=== PATIENT | female | born 1960 | race Caucasian/White ===

== ENCOUNTER 2017-02-02 02:35 | Inpatient (IN) | payer MEDICAID, OTHER ==
[2017-02-02] MEDS ORDERED: Sodium Chloride 0.9% 1,000 ML IV STA (02:59)
--- NOTE | 2017-02-02 03:02 | ED PDOC ---
Arrival/HPI - General Chief Complaint: Medical Clearance Time Seen by Provider: 02/02/17 02:38 Historian: Patient - History of Present Illness Narrative History of Present Illness (Text): 02/02/17 02:55 Latoya Cali is a 56 year old female who presents to the emergency department complaining of 2 days of shortness of breath, severe anxiety feeling , generalized weakness, chills, dizziness with polyuria and polydipsia. Patient states that she experiences associated dry mouth. She vomited once earlier. Patient denies any chest pain, abdominal pain, or any other complaints at this time. Time/Duration: 1-3 hours Symptom Onset: Gradual Symptom Course: Unchanged Severity Level: Moderate Context: Home Past Medical History - Provider Review Nursing Documentation Reviewed: Yes - Reproductive Menopause: Yes - Cardiac Hx Hypertension: Yes - Endocrine/Metabolic Hx Diabetes Mellitus Type 2: Yes - Psychiatric Hx Substance Use: No Family/Social History - Physician Review Nursing Documentation Reviewed: Yes Family/Social History: No Known Family HX Smoking Status: Never Smoked Hx Alcohol Use: No Hx Substance Use: No Allergies/Home Meds Allergies/Adverse Reactions: Allergies No Known Allergies Allergy (Verified 02/02/17 02:52) Home Medications: Home Meds Medication Instructions Recorded Confirmed Metoprolol Tartrate [Lopressor] 20 mg PO DAILY 02/02/17 02/02/17 metFORMIN [glucOPHAGE] 500 mg PO BID 02/02/17 02/02/17 Review of Systems - Physician Review All systems were reviewed & negative as marked: Yes - Review of Systems Constitutional: Fatigue, Other (Weakness, hypertensionm chills) Respiratory: SOB Cardiovascular: absent: Chest Pain Gastrointestinal: Vomiting (once). absent: Abdominal Pain Genitourinary Female: Frequency. absent: Dysuria, Vaginal Discharge Musculoskeletal: absent: Arthralgias Skin: absent: Rash, Pruritis Neurological: Dizziness. absent: Headache Endocrine: Polyuria, Polydipsia. absent: Diaphoresis Hemo/Lymphatic: absent: Adenopathy Psychiatric: Other (feeling of anxiety) Physical Exam Vital Signs Reviewed: Yes Vital Signs Temp Pulse Resp BP Pulse Ox 02/02/17 03:46 94 H 16 132/82 99 02/02/17 03:32 72 16 112/91 H 99 02/02/17 03:06 96.8 F L 02/02/17 02:53 98.4 F 113 H 30 H 86/40 L 100 Temperature: Afebrile Blood Pressure: Hypotensive Pulse: Tachycardic Respiratory Rate: Tachypneic Appearance: Positive for: Ill-Appearing, Other (Anxious appearing and jittery) Pain Distress: None Mental Status: Positive for: Alert and Oriented X 3 Finger Stick Blood Glucose: 284 - Systems Exam Head: Present: Atraumatic, Normocephalic Pupils: Present: PERRL Conjunctiva: Present: Normal Mouth: Present: Dry Pharnyx: Present: Normal. No: ERYTHEMA, EXUDATE, TONSILS ENLARGED Neck: Present: Normal Range of Motion Respiratory/Chest: Present: Clear to Auscultation, Good Air Exchange. No: Respiratory Distress, Accessory Muscle Use Cardiovascular: Present: Normal S1, S2, Tachycardic. No: Murmurs Abdomen: Present: Normal Bowel Sounds. No: Tenderness, Distention, Peritoneal Signs Back: Present: Normal Inspection Upper Extremity: Present: Normal Inspection. No: Cyanosis, Edema Lower Extremity: Present: Normal Inspection. No: Edema Neurological: Present: GCS=15, CN II-XII Intact, Speech Normal Skin: Present: Warm, Dry, Normal Color. No: Rashes Psychiatric: Present: Alert, Oriented x 3 Medical Decision Making ED Course and Treatment: 02/02/17 02:55 Impression: 56 year old female complaining of shortness of breath, generalized weakness, chills, and hypertension tonight. Differential Diagnosis included but are not limited to: Sepsis vs. DKA vs electrolyte abnormality vs PE Plan: -- Xanax and IV fluids -- Reassess and disposition Progress Notes: 02/02/17 05:03 EKG: sinus tachycardia @ [address]/T changes; QTc is wide at 521; no old for comparison. Normal axis. Patient with noted history - presented with hypotension and tachycardia and feeling of anxiety. Given IVF with good BP response. Labs are showing profound electrolyte abnormalities, including hyponatremia, hypomagnesemia, and hypokalemia. Patient will need intensive care - discussed with Dr. Mari Posada, grape picker for ICU admission. 02/02/17 05:13 Urine is still pending. - Lab Interpretations Lab Results: 02/02/17 03:05 02/02/17 03:05 Lab Results 02/02/17 04:00: pCO2 35, pO2 73.0 L, HCO3 28.6 H, ABG pH 7.52 H, ABG Total CO2 29.7 H, ABG O2 Saturation 96.4, ABG Base Excess 5.7 H, ABG Potassium 2.1 L*, Sodium 117.0 L*, Chloride 79.0 L, Glucose 265 H, Lactate 2.4 H, FiO2 21.0, Arterial Blood Potassium 2.1 L* 02/02/17 03:05: Sodium 113 L*, Chloride 70 L, Potassium 2.4 L*, Carbon Dioxide 24, Anion Gap 21 H, BUN 13, Creatinine 0.8, Est GFR ( Amer) > 60, Est GFR (Non-Af Amer) > 60, Random Glucose 267 H, Calcium 8.0 L, Magnesium 0.8 L*, Total Bilirubin 2.1 H, AST 264 H, ALT 260 H, Alkaline Phosphatase 166 H, Lactate Dehydrogenase 714 H, Total Creatine Kinase 238 H, CK-MB (CK-2) 3.2, CK- MB (CK-2) % Cancelled, Troponin I < 0.01, NT-Pro-B Natriuret Pep 120, Total Protein 6.3, Albumin 3.7, Globulin 2.6, Albumin/Globulin Ratio 1.4, Lipase 20 L 02/02/17 03:05: pO2 120 H, VBG pH 7.61 H, VBG pCO2 26.0 L, VBG HCO3 26.1, VBG Total CO2 26.9, VBG O2 Sat (Calc) 97.9 H, VBG Base Excess 5.7 H, VBG Potassium 2.4 L*, Sodium 115.0 L*, Chloride 73.0 L, Glucose 296 H, Lactate 5.1 H*, FiO2 21.0, Venous Blood Potassium 2.4 L* 02/02/17 03:05: PT 11.9 H, INR 1.10 H, APTT 24.3, D-Dimer, Quantitative 0.26 02/02/17 03:05: WBC 4.0 L, RBC 4.47, Hgb 13.2, Hct 38.2, MCV 85.5, MCH 29.5, MCHC 34.6, RDW 14.0, Plt Count 96 L, MPV 10.8, Gran % 69.3 H, Lymph % (Auto) 21.1 L, Mchenry % (Auto) 8.8 H, Eos % (Auto) 0.5 L, Baso % (Auto) 0.3, Gran # 2.76 , Lymph # 0.8 L, Mchenry # 0.4, Eos # 0.0, Baso # 0.01 02/02/17 02:51: POC Glucose (mg/dL) 284 H I have reviewed the lab results: Yes - RAD Interpretation Radiology Orders: 02/02/17 03:05 CHEST PORTABLE [RAD] Stat - Medication Orders Current Medication Orders: Magnesium Sulfate 2 gm/ Sodium (Chloride) 104 mls @ 102 mls/hr IV ONCE ONE Stop: 02/02/17 05:15 Potassium Chloride (Potassium Chloride 10 Meq/100 Ml) 10 meq in 100 mls @ 100 mls/hr IVPB Q2H ARINA Stop: 02/02/17 07:14 Vancomycin HCl (Vancomycin 1gm) 1 gm in 250 mls @ 167 mls/hr IVPB STAT STA PRN Reason: Protocol Stop: 02/02/17 05:52 Last Admin: 02/02/17 04:30 Dose: 167 mls/hr eMAR Start Stop Document 02/02/17 04:30 SC (Rec: 02/02/17 04:31 [facility] [id number] Intravenous Solution Start Date 02/02/17 Start Time 04:31 End Date 02/02/17 End time 06:01 Total Infusion Time 90 Discontinued Medications Alprazolam (Xanax) 0.25 mg PO STAT STA PRN Reason: Protocol Stop: 02/02/17 03:05 Last Admin: 02/02/17 03:30 Dose: 0.25 mg Famotidine (Pepcid) 20 mg IVP STAT STA Stop: 02/02/17 03:06 Last Admin: 02/02/17 03:30 Dose: 20 mg IVP Administration Document 02/02/17 03:30 SC (Rec: 02/02/17 03:44 [facility] [id number] Charges for Administration # of IVP Administrations 1 Sodium Chloride (Sodium Chloride 0.9%) 1,000 mls @ 999 mls/hr IV .Q1H1M STA Stop: 02/02/17 03:59 Last Admin: 02/02/17 03:43 Dose: 999 mls/hr eMAR Start Stop Document 02/02/17 03:43 SC (Rec: 02/02/17 03:44 [place] [facility] [id number] Intravenous Solution Start Date 02/02/17 Start Time 03:30 End Date 02/02/17 End time 04:30 Total Infusion Time 60 Sodium Chloride (Sodium Chloride 0.9%) 1,500 mls @ 1,500 mls/hr IV .Q1H STA Stop: 02/02/17 04:49 Last Admin: 02/02/17 04:02 Dose: 1,500 mls/hr eMAR Start Stop Document 02/02/17 04:02 SC (Rec: 02/02/17 04:02 SC [facility] [id number]) Intravenous Solution Start Date 02/02/17 Start Time 04:02 End Date 02/02/17 End time 05:00 Total Infusion Time 58 Piperacillin Sod/Tazobactam Sod (Zosyn 3.375 In Ns 100ml) 100 mls @ 200 mls/hr IVPB STAT STA PRN Reason: Protocol Stop: 02/02/17 04:48 - Scribe Statement Jenn Rolon Provider Scribe Attestation: All medical record entries made by the Scribe were at my direction and personally dictated by me. I have reviewed the chart and agree that the record accurately reflects my personal performance of the history, physical exam, medical decision making, and the department course for this patient. I have also personally directed, reviewed, and agree with the discharge instructions and disposition. Disposition/Present on Arrival - Present on Arrival Any Indicators Present on Arrival: No History of DVT/PE: No History of Uncontrolled Diabetes: No Urinary Catheter: No History of Decub. Ulcer: No History Surgical Site Infection Following: None - Disposition Have Diagnosis and Disposition been Completed?: Yes Diagnosis: Hyponatremia, Hypokalemia, Hypomagnesemia Disposition: HOSPITALIZED Disposition Time: 04:20 Patient Plan: Admission, ICU Condition: CRITICAL
[2017-02-02 03:47] LABS: BASO # 0.01 K/mm3 (0.0-2.0); BASO % 0.3 % (0.0-3.0); EOS % 0.5 % (1.5-5.0); GRAN # 2.76 (1.4-6.5); GRAN % 69.3 % (50.0-68.0); HEMATOCRIT 38.2 % (36.0-48.0); LYMPH # 0.8 (1.2-3.4); LYMPH % 21.1 % (22.0-35.0); MEAN CELL VOLUME 85.5 fl (80.0-105.0); MEAN CORPUSCULAR HEMOGLOBIN 29.5 pg (25.0-35.0); MEAN CORPUSCULAR HGB CONC 34.6 g/dl (31.0-37.0); MEAN PLATELET VOLUME 10.8 fl (7.0-11.0); MONO # 0.4 (0.1-0.6); MONO % 8.8 % (1.0-6.0)
[2017-02-02 03:48] LABS: VENOUS BLOOD GAS BASE EXCESS 5.7 mmol/L (0.0-2.0); VENOUS BLOOD PH 7.61 (7.32-7.43)
[2017-02-02] MEDS ORDERED: Sodium Chloride 0.9% 1,500 ML IV STA (03:50)
[2017-02-02 04:02] LABS: ALB/GLOB RATIO 1.4 (1.1-1.8); ALKALINE PHOSPHATASE 166 U/L (38-126); ALT/SGPT 260 U/L (7-56); AST/SGOT 264 U/L (14-36); BILIRUBIN,TOTAL 2.1 mg/dL (0.2-1.3); BLOOD UREA NITROGEN 13 mg/dL (7-21); CARBON DIOXIDE 24 mmol/L (21-33); CHLORIDE 70 mmol/L (98-107); GFR AFRICAN-AMERICAN > 60; GLUCOSE,RANDOM 267 mg/dL (70-110); INR 1.1 (0.93-1.08); LIPASE 20 U/L (23-300); PARTIAL THROMBOPLASTIN TIME 24.3 Seconds (23.7-30.8); TOTAL PROTEIN 6.3 g/dL (5.8-8.3)
[2017-02-02 04:04] LABS: SODIUM 113 mmol/L (132-148)
[2017-02-02 04:06] LABS: D DIMER 0.26 mg/L FEU (0-0.50)
[2017-02-02 04:09] LABS: POTASSIUM 2.4 mmol/L (3.6-5.0)
[2017-02-02 04:12] LABS: MAGNESIUM 0.8 mg/dL (1.7-2.2)
[2017-02-02] MEDS ORDERED: Magnesium Sulfate 2 GM in Sodium Chloride 0.9% 100 ML IV ONE (04:14)
[2017-02-02 04:15] LABS: TROPONIN I < 0.01 ng/mL
[2017-02-02] MEDS ORDERED: Piperacillin/Tazobact 3.375 gm 100 ML IVPB STA (04:19)
[2017-02-02 04:20] LABS: ARTERIAL BLOOD GAS HCO3 28.6 mmol/L (21-28); ARTERIAL BLOOD GAS PH 7.52 (7.35-7.45)
[2017-02-02] MEDS ORDERED: Vancomycin 1gm in NS 250ml 1 GM/250 ML BAG IVPB STA (04:23)
[2017-02-02 05:37] LABS: PH,URINE 6.5 (4.7-8.0); URINE BILIRUBIN NEGATIVE (NEGATIVE); URINE BLOOD TRACE-INTACT (NEGATIVE); URINE GLUCOSE (UA) NEGATIVE (NEGATIVE); URINE KETONE TRACE mg/dL (NEGATIVE); URINE LEUKOCYTE ESTERASE SMALL Leu/uL (NEGATIVE); URINE PROTEIN NEGATIVE mg/dL (<30 mg/dL); URINE UROBILINOGEN 0.2 E.U./dL (<1 E.U./dL)
[2017-02-02 05:46] LABS: URINE APPEARANCE CLEAR (CLEAR); URINE COLOR YELLOW (YELLOW)
[2017-02-02 05:49] LABS: URINE BACTERIA OCC (NEG); URINE RBC 0 - 2 /hpf (0-2)
--- NOTE | 2017-02-02 06:09 | CP.PCM.HP ---
History of Present Illness - History of Present Illness History of Present Illness: Jose Ho PGY-1 Internal Medicine H+P and ICU Consult Note HPI: 56 yo female with PMH of HTN and DM2 presents with complaining of SOB and generalized weakness for past 2 days. Patient states she gets SOB when she walks some distance. She has never felt the weakness before, denies any change in appetite. She also complains of nausea and vomiting up food several times over the past two days. In addition, she feels that her face has been swollen a little for the past couple of days. She also complained of chills, dizziness, dry mouth, but denies any CP, abdominal pain, headaches, diarrhea or any other complaints. PMH: HTN, DM2 PSH: Lasik Medications: Metoprolol, Metformin Allergies: NKDA Social: denies tobacco use, occasional alcohol use socially, denies illicit drug use Family Hx: None Significant Present on Admission - Present on Admission Any Indicators Present on Admission: No Review of Systems - Constitutional Constitutional: Chills, Fatigue - EENT Eyes: absent: Change in Vision Nose/Mouth/Throat: absent: Nasal Congestion, Sore Throat - Cardiovascular Cardiovascular: Dyspnea. absent: Chest Pain - Respiratory Respiratory: Dyspnea - Gastrointestinal Gastrointestinal: Nausea, Vomiting. absent: Abdominal Pain - Musculoskeletal Musculoskeletal: absent: Arthralgias, Numbness, Tingling - Integumentary Integumentary: absent: Rash - Psychiatric Psychiatric: Anxiety Past Patient History - Past Social History Smoking Status: Never Smoked - CARDIAC Hx Hypertension: Yes - ENDOCRINE/METABOLIC Hx Diabetes Mellitus Type 2: Yes - PSYCHIATRIC Hx Substance Use: No Meds Allergies/Adverse Reactions: Allergies Allergy/AdvReac Type Severity Reaction Status Date / Time No Known Allergies Allergy Verified 02/02/17 02:52 Physical Exam - Constitutional Appears: Non-toxic, No Acute Distress - Head Exam Head Exam: ATRAUMATIC, NORMAL INSPECTION, NORMOCEPHALIC - Eye Exam Eye Exam: EOMI, PERRL - Neck Exam Neck exam: Negative for: Lymphadenopathy, Tenderness, Thyromegaly - Respiratory Exam Respiratory Exam: Clear to Auscultation Bilateral, NORMAL BREATHING PATTERN - Cardiovascular Exam Cardiovascular Exam: REGULAR RHYTHM, +S1, +S2. absent: Systolic Murmur - GI/Abdominal Exam GI & Abdominal Exam: Normal Bowel Sounds. absent: Tenderness - Extremities Exam Extremities exam: Positive for: normal inspection - Back Exam Back exam: absent: CVA tenderness (L), CVA tenderness (R) - Neurological Exam Neurological exam: Alert, CN II-XII Intact, Oriented x3 - Psychiatric Exam Psychiatric exam: Anxious - Skin Skin Exam: Normal Color Results - Vital Signs Recent Vital Signs: Last Vital Signs Temp 98.4 F 02/02/17 06:00 Pulse 96 H 02/02/17 06:00 Resp 16 02/02/17 06:00 BP 146/88 02/02/17 06:00 Pulse Ox 99 02/02/17 06:00 - Labs Result Diagrams: 02/02/17 03:05 02/02/17 21:20 Labs: Laboratory Results - last 24 hr 02/02/17 04:45 Urine Color Yellow Urine Appearance Clear Urine pH 6.5 Ur Specific [place] <= 1.005 Urine Protein Negative Urine Glucose (UA) Negative Urine Ketones Trace H Urine Blood Trace-intact H Urine Nitrate Negative Urine Bilirubin Negative Urine Urobilinogen 0.2 Ur Leukocyte Esterase Small H Urine RBC 0 - 2 Urine WBC 2 - 5 Ur Epithelial Cells 3 - 4 Urine Bacteria Occ Assessment & Plan - Assessment and Plan (Free Text) Assessment: 56 yo female with PMH of HTN and DM2 presents with complaining of SOB and generalized weakness for past 2 days. She is being admitted to the ICU due to electrolyte disturbances (hypokalemia, hyponatremia, hypomagnesia) and meeting SIRS criteria (HR>90, RR>30, and WBC=4) Plan: Neuro: -Patient is AAOx3, speaking coherently, able to answer questions and provide a history -patient slightly anxious -Xanax given in the ED -CN II-XII intact bilaterally - continue to monitor, maintain euthermia Cardiovascular -HR: 96 BP: 146/88, HR was 113 and BP was 86/40 on admission -EKG sinus tachycardia @ [address]/T changes; QTc is wide at 521; no old EKG for comparison, EKG pending official review -Trop 0.01 -Patient given IV fluids -Continue to monitor BP and vitals Pulmonary -Oxygen saturation is 99% on room air -patient breathing at a rate 16 and denies any discomfort -pH: 7.52 HC03:28.6 -Chest x-ray: no acute disease, no infiltrates, pending official read Renal -BUN: 13.0 Cr: 0.8 -Na: 113, K: 2.4 Cl: 70 Magnesium: 0.8 -NS given, K given, Magnesium given -urine electrolytes ordered -Considering possible RTA -Monitor and replete electrolytes as needed -maintain euvolemia -Nephro (Mughni) Consulted Infectious Disease -Max temp: 96.8 -WBC: 4, currently afebrile -Urine and blood cultures ordered, pending -Zosyn and Vancomycin given Hematology -Hb: 13.2 Hct: 38.2 Platelets: 96 PT: 11.9 INR: 1.10 D-Dimer: 0.26 -continue to monitor GI -AST: 264 ALT: 260 Alk Phos: 166 lipase: 20 -Follow Transaminitis -Lipid panel Order -CT abdomen and Pelvis ordered Endocrine: -Blood Sugar is 284 -Hold oral glycemics -HA1C ordered -Adrenal workup ordered -TSH ordered, Thyroid antibodies ordered -Considering possible Adrenal insufficiency -Will consult Endo GI/DVT Prophylaxis Patient seen and discussed with the attending Dr. Jordin Posada
[2017-02-02 06:43] LABS: PHOSPHOROUS 2.2 mg/dL (2.5-4.5)
[2017-02-02] MEDS ORDERED: Insulin Lispro (humaLOG) LOW Coverage SC SCH (06:45)
--- NOTE | 2017-02-02 07:35 | CT ---
EXAM: CT Abdomen and Pelvis Without Intravenous Contrast EXAM DATE/TIME: 02/02/2017 6:03 AM CLINICAL HISTORY: 56 years old, female; Abnormal findings; Abnormal lab test; Elevated liver enzymes; Additional info: Elevated lft TECHNIQUE: Axial computed tomography images of the abdomen and pelvis without intravenous contrast. All CT scans at this facility use one or more dose reduction techniques, viz.: automated exposure control; ma/kV adjustment per patient size (including targeted exams where dose is matched to indication; i.e. head); or iterative reconstruction technique. Coronal and sagittal reformatted images were created and reviewed. COMPARISON: No relevant prior studies available. FINDINGS: Cholecystectomy clips are present. The liver is decreased in attenuation consistent with fatty infiltration. Extensive pancreatic calcifications are present suggesting chronic pancreatitis. The spleen and adrenals appear grossly normal on this non-contrast study. No perinephric stranding. No hydronephrosis. No obstructing calculi. The bowel appears grossly normal. A normal appendix is identified coronal image 61 axial images 132 -151. There is a small umbilical fat hernia. No gross abnormalities of the uterus or ovaries on noncontrast study. Well-corticated lucency left acetabular roof. IMPRESSION: No acute findings.
--- NOTE | 2017-02-02 07:53 | PCM.SEPTIC ---
<Dennis Freireima - Last Filed: 02/02/17 13:37> Sepsis Progress Note - Reassessment Type Date of Evaluation: 02/02/17 Time of Evaluation: 10:00 Reassessment Type: Non-invasive reassessment - Non Invasive Reassessment Were the most recent vital sign reviewed: Yes Vital Sign (Latest): Temp Pulse Resp BP Pulse Ox 98.2 F 96 H 18 139/80 99 02/02/17 07:00 02/02/17 07:00 02/02/17 07:00 02/02/17 07:00 02/02/17 07:00 Cardiovascular: Yes: Regular Rate, Rhythm. No: Murmur, Bradycardia, Tachycardia Respiratory: Yes: Normal Breath Sounds. No: Accessory Muscle Use, Rales, Rhonchi, Wheezing Capillary Refill: Normal (Less than 2 sec) Skin: Normal Color, Warm, Dry - Invasive Reassessment (complete 2 of 4) Was a Central Venous Pressure Measurement obtained within 6 Hours after the presentation of septic shock: No Was a central venous oxygen measurement obtained within 6 hours after the presentation of septic shock: No Was a bedside cardiovascular ultrasound performed within 6 hours after the presentation of septic shock: No Was a passive leg raise performed or was a fluid challenge performed within 6 hrs of the initial fluid bolus: Yes Passive Leg Raise Result: Not Applicable Fluid Challenge performed: Yes <Perri Posada MD - Last Filed: 02/02/17 15:00> Sepsis Progress Note - Non Invasive Reassessment Vital Sign (Latest): Temp Pulse Resp BP Pulse Ox 98.1 F 87 20 139/80 99 02/02/17 13:13 02/02/17 13:13 02/02/17 13:13 02/02/17 13:13 02/02/17 07:00 Attending/Attestation - Attestation I have personally seen and examined this patient.: Yes I have fully participated in the care of the patient.: Yes I have reviewed all pertinent clinical information, including history, physical exam and plan: Yes Notes (Text): 02/02/17 14:58 56 y/o F admitted overnight for broad electrolyte abnormality All electrolytes replaced. Na trend and increased quickl on NS. Held and given D%w and desmopressin. Trend BMP q 4hrs. Na change 8-10meq in 24 hrs. Mental status intact. Symptoms resolved. Out of bed to chair dvt p cc time 55 min
[2017-02-02 07:54] LABS: VENOUS BLOOD GAS BASE EXCESS 7.6 mmol/L (0.0-2.0); VENOUS BLOOD PH 7.48 (7.32-7.43)
[2017-02-02 08:15] LABS: BLOOD UREA NITROGEN 10 mg/dL (7-21); CALCIUM 7.1 mg/dL (8.4-10.5); CARBON DIOXIDE 30 mmol/L (21-33); CHLORIDE 85 mmol/L (98-107); CHOLESTEROL 138 mg/dL (130-200); GFR AFRICAN-AMERICAN > 60; GLUCOSE,RANDOM 195 mg/dL (70-110); SODIUM 123 mmol/L (132-148)
[2017-02-02 08:24] LABS: POTASSIUM 2.9 mmol/L (3.6-5.0)
--- NOTE | 2017-02-02 08:31 | RAD ---
HISTORY: sob COMPARISON: No prior. FINDINGS: LUNGS: There is patient rotation to the right. Allowing for this, the lungs are clear. PLEURA: No significant pleural effusion identified, no pneumothorax apparent. CARDIOVASCULAR: Normal. OSSEOUS STRUCTURES: No significant abnormalities. VISUALIZED UPPER ABDOMEN: Normal. OTHER FINDINGS: None. IMPRESSION: Patient rotation to the right. No acute findings.
[2017-02-02 08:48] LABS: THYROID STIMULATING HORMONE 1.18 mIU/mL (0.46-4.68)
[2017-02-02 09:10] LABS: BLOOD UREA NITROGEN 10 mg/dL (7-21); CALCIUM 7.3 mg/dL (8.4-10.5); CARBON DIOXIDE 28 mmol/L (21-33); CHLORIDE 85 mmol/L (98-107); GFR AFRICAN-AMERICAN > 60; GLUCOSE,RANDOM 186 mg/dL (70-110); MAGNESIUM 1.6 mg/dL (1.7-2.2); PHOSPHOROUS 3.7 mg/dL (2.5-4.5); SODIUM 123 mmol/L (132-148)
[2017-02-02] MEDS ORDERED: Magnesium Sulfate 2 GM in Sodium Chloride 0.9% 100 ML IVPB ONE (09:22)
[2017-02-02] MEDS ORDERED: Potassium Chloride 40 mEq/30 ml LIQ UD PO ONE (09:27)
--- NOTE | 2017-02-02 10:13 | CP.PCM.CON ---
<Ela Potter - Last Filed: 02/02/17 10:38> History of Present Illness - History of Present Illness History of Present Illness: Gastroenterology Fellow/PGY5 Consult Note 56 year old female with past medical history of Hypertension and Diabetes presenting with weakness and shortness of breath. Patient describes onset of swollen face, chills, and three soft stools per day over the past two days. She felt her mouth was dry leading to drinking ten half- liter bottles of water from baseline 4-5 half-liter bottles of water daily. She then developed polyuria and shortness of breath. Denies fever, sweats, nausea, vomiting, hematemesis, abdominal pain, constipation, melena, hematochezia, or unintentional weight loss. Usual bowel habit of once daily without straining and hard stools. Prior EGD and colonoscopy three months ago endorsed to be normal with patient stating completed for routine evaluation. Family- denies stomach cancer, colon cancer Social- denies tobacco, alcohol, illicit drug use Surgery- cholecystectomy, [place] Review of Systems - Review of Systems Review of Systems: 12-point review of systems negative except for as above Past Patient History - Past Social History Smoking Status: Never Smoked - CARDIAC Hx Hypertension: Yes - ENDOCRINE/METABOLIC Hx Diabetes Mellitus Type 2: Yes - PSYCHIATRIC Hx Substance Use: No Meds Allergies/Adverse Reactions: Allergies Allergy/AdvReac Type Severity Reaction Status Date / Time No Known Allergies Allergy Verified 02/02/17 02:52 - Medications Medications: Current Medications Heparin Sodium (Porcine) (Heparin) 5,000 units SC Q12 ARINA PRN Reason: Protocol Last Admin: 02/02/17 09:25 Dose: 5,000 units Magnesium Sulfate 2 gm/ Sodium (Chloride) 104 mls @ 102 mls/hr IVPB ONCE ONE Stop: 02/02/17 10:23 Last Admin: 02/02/17 09:37 Dose: 102 mls/hr Dextrose (Dextrose 5% In Water 1000 Ml) 1,000 mls @ 100 mls/hr IV .Q10H ARINA Last Admin: 02/02/17 09:37 Dose: 100 mls/hr Insulin Human Lispro (Humalog Low) 0 units SC Q6H ARINA PRN Reason: Protocol Metoprolol Tartrate (Lopressor) 25 mg PO DAILY [facility] Last Admin: 02/02/17 09:35 Dose: 25 mg Pantoprazole Sodium (Protonix Ec Tab) 40 mg PO 0600 [facility] Physical Exam - Constitutional Appears: Non-toxic, No Acute Distress - Head Exam Head Exam: ATRAUMATIC, NORMOCEPHALIC - Eye Exam Eye Exam: EOMI, PERRL Pupil Exam: PERRL. absent: Miosis, Mydriatic - ENT Exam ENT Exam: Mucous Membranes Moist, Normal Oropharynx - Neck Exam Neck exam: Positive for: Full Rom, Normal Inspection - Respiratory Exam Respiratory Exam: Clear to Auscultation Bilateral. absent: Rales, Rhonchi, Wheezes - Cardiovascular Exam Cardiovascular Exam: RRR, +S1, +S2. absent: Gallop, Rubs - GI/Abdominal Exam GI & Abdominal Exam: Normal Bowel Sounds, Soft. absent: Distended, Firm, Guarding, Organomegaly, Rebound, Rigid, Tenderness - Extremities Exam Extremities exam: Positive for: normal inspection. Negative for: pedal edema - Neurological Exam Neurological exam: Alert, Oriented x3 - Psychiatric Exam Psychiatric exam: Normal Affect, Normal Mood - Skin Skin Exam: Dry, Intact, Normal Color, Warm Results - Vital Signs Recent Vital Signs: Last Vital Signs Temp 98.2 F 02/02/17 07:00 Pulse 85 02/02/17 09:35 Resp 18 02/02/17 07:00 BP 122/73 02/02/17 09:35 Pulse Ox 99 02/02/17 07:00 - Labs Result Diagrams: 02/02/17 03:05 02/02/17 08:30 Labs: Laboratory Results - last 24 hr 02/02/17 02/02/17 02/02/17 04:45 06:24 07:30 pO2 VBG pH VBG pCO2 VBG HCO3 VBG Total CO2 VBG O2 Sat (Calc) VBG Base Excess VBG Potassium Sodium Chloride Glucose Lactate FiO2 Potassium Carbon Dioxide Anion Gap BUN Creatinine Est GFR ( Amer) Est GFR (Non-Af Amer) Random Glucose Calcium Phosphorus Magnesium Triglycerides Cholesterol LDL Cholesterol Direct HDL Cholesterol TSH 3rd Generation 1.18 Venous Blood Potassium Urine Color Yellow Urine Appearance Clear Urine pH 6.5 Ur Specific [place] <= 1.005 Urine Protein Negative Urine Glucose (UA) Negative Urine Ketones Trace H Urine Blood Trace-intact H Urine Nitrate Negative Urine Bilirubin Negative Urine Urobilinogen 0.2 Ur Leukocyte Esterase Small H Urine RBC 0 - 2 Urine WBC 2 - 5 Ur Epithelial Cells 3 - 4 Urine Bacteria Occ Ur Random Sodium 61 Acetaminophen Alcohol, Quantitative 02/02/17 02/02/17 02/02/17 07:30 07:30 08:30 pO2 59 H VBG pH 7.48 H VBG pCO2 43.0 VBG HCO3 32.0 H VBG Total CO2 33.3 H VBG O2 Sat (Calc) 92.9 H VBG Base Excess 7.6 H VBG Potassium 2.8 L Sodium 123 L 122.0 L 123 L Chloride 85 L D 86.0 L 85 L Glucose 210 H Lactate 1.4 FiO2 21.0 Potassium 2.9 L* D 3.0 L Carbon Dioxide 30 28 Anion Gap 11 13 BUN 10 10 Creatinine 0.7 0.7 Est GFR ( Amer) > 60 > 60 Est GFR (Non-Af Amer) > 60 > 60 Random Glucose 195 H 186 H Calcium 7.1 L 7.3 L Phosphorus 3.7 Magnesium 1.6 L Triglycerides 159 Cholesterol 138 LDL Cholesterol Direct 58 HDL Cholesterol 36 TSH 3rd Generation Venous Blood Potassium 2.8 L Urine Color Urine Appearance Urine pH Ur Specific [place] Urine Protein Urine Glucose (UA) Urine Ketones Urine Blood Urine Nitrate Urine Bilirubin Urine Urobilinogen Ur Leukocyte Esterase Urine RBC Urine WBC Ur Epithelial Cells Urine Bacteria Ur Random Sodium Acetaminophen Alcohol, Quantitative 02/02/17 02/02/17 08:30 08:30 pO2 VBG pH VBG pCO2 VBG HCO3 VBG Total CO2 VBG O2 Sat (Calc) VBG Base Excess VBG Potassium Sodium Chloride Glucose Lactate FiO2 Potassium Carbon Dioxide Anion Gap BUN Creatinine Est GFR ( Amer) Est GFR (Non-Af Amer) Random Glucose Calcium Phosphorus Magnesium Triglycerides Cholesterol LDL Cholesterol Direct HDL Cholesterol TSH 3rd Generation Venous Blood Potassium Urine Color Urine Appearance Urine pH Ur Specific [place] Urine Protein Urine Glucose (UA) Urine Ketones Urine Blood Urine Nitrate Urine Bilirubin Urine Urobilinogen Ur Leukocyte Esterase Urine RBC Urine WBC Ur Epithelial Cells Urine Bacteria Ur Random Sodium Acetaminophen < 10.0 L Alcohol, Quantitative < 10 Assessment & Plan - Assessment and Plan (Free Text) Assessment: 56 year old female with past medical history of Hypertension and Diabetes presenting with weakness, shortness of breath, diarrhea, polydipsia, and polyuria. 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 Prior EGD and colonoscopy three months ago endorsed to be normal with patient stating completed for routine evaluation. Plan: >likely ischemic hepatopathy 2/2 transient ischemia with SIRs criteria on presentation >polydipsia and polyuria in setting of HAGMA, trace ketones, hyperglycemia >medicine team pending work up for RTA and adrenal insufficiency >ordered direct bilirubin >ordered autoimmune workup >pending Hepatitis panel >ordered Abdominal U/S >daily LFTs >pending stool work up >signs of chronic pancreatitis on CT A/P- denies history of acute pancreatitis- will require further workup >will follow clinical course <Ramses Tilley - Last Filed: 02/02/17 12:38> Meds - Medications Medications: Current Medications Heparin Sodium (Porcine) (Heparin) 5,000 units SC Q12 ARINA PRN Reason: Protocol Last Admin: 02/02/17 09:25 Dose: 5,000 units Dextrose (Dextrose 5% In Water 1000 Ml) 1,000 mls @ 500 mls/hr IV .Q2H [facility]INA Stop: 02/02/17 13:31 Last Admin: 02/02/17 11:19 Dose: 500 mls/hr Vancomycin HCl (Vancomycin 1gm) 1 gm in 250 mls @ 167 mls/hr IVPB Q12H [facility]INA PRN Reason: Protocol Last Admin: 02/02/17 11:21 Dose: 167 mls/hr Piperacillin Sod/Tazobactam Sod (Zosyn 3.375 In Ns 100ml) 100 mls @ 200 mls/hr IVPB Q6 ARINA PRN Reason: Protocol Stop: 02/02/17 18:29 Last Admin: 02/02/17 11:28 Dose: 200 mls/hr Insulin Human Lispro (Humalog Low) 0 units SC Q6H ARINA PRN Reason: Protocol Last Admin: 02/02/17 11:54 Dose: 3 units Metoprolol Tartrate (Lopressor) 25 mg PO DAILY [facility] Last Admin: 02/02/17 09:35 Dose: 25 mg Pantoprazole Sodium (Protonix Ec Tab) 40 mg PO 0600 [facility] Results - Vital Signs Recent Vital Signs: Last Vital Signs Temp 98.2 F 02/02/17 07:00 Pulse 85 02/02/17 09:35 Resp 18 02/02/17 07:00 BP 122/73 02/02/17 09:35 Pulse Ox 99 02/02/17 07:00 - Labs Result Diagrams: 02/02/17 03:05 02/02/17 11:30 Labs: Laboratory Results - last 24 hr 02/02/17 02/02/17 02/02/17 04:45 06:24 07:30 pO2 VBG pH VBG pCO2 VBG HCO3 VBG Total CO2 VBG O2 Sat (Calc) VBG Base Excess VBG Potassium Sodium Chloride Glucose Lactate FiO2 Potassium Carbon Dioxide Anion Gap BUN Creatinine Est GFR ( Amer) Est GFR (Non-Af Amer) POC Glucose (mg/dL) Random Glucose Serum Osmolality 260 L Calcium Phosphorus Magnesium Iron TIBC % Saturation Direct Bilirubin Triglycerides Cholesterol LDL Cholesterol Direct HDL Cholesterol TSH 3rd Generation 1.18 Prolactin Venous Blood Potassium Urine Color Yellow Urine Appearance Clear Urine pH 6.5 Ur Specific [place] <= 1.005 Urine Protein Negative Urine Glucose (UA) Negative Urine Ketones Trace H Urine Blood Trace-intact H Urine Nitrate Negative Urine Bilirubin Negative Urine Urobilinogen 0.2 Ur Leukocyte Esterase Small H Urine RBC 0 - 2 Urine WBC 2 - 5 Ur Epithelial Cells 3 - 4 Urine Bacteria Occ Urine Osmolality 186 Ur Random Sodium 61 Salicylates Acetaminophen Alcohol, Quantitative 02/02/17 02/02/17 02/02/17 07:30 07:30 08:30 pO2 59 H VBG pH 7.48 H VBG pCO2 43.0 VBG HCO3 32.0 H VBG Total CO2 33.3 H VBG O2 Sat (Calc) 92.9 H VBG Base Excess 7.6 H VBG Potassium 2.8 L Sodium 123 L 122.0 L 123 L Chloride 85 L D 86.0 L 85 L Glucose 210 H Lactate 1.4 FiO2 21.0 Potassium 2.9 L* D 3.0 L Carbon Dioxide 30 28 Anion Gap 11 13 BUN 10 10 Creatinine 0.7 0.7 Est GFR ( Amer) > 60 > 60 Est GFR (Non-Af Amer) > 60 > 60 POC Glucose (mg/dL) Random Glucose 195 H 186 H Serum Osmolality Calcium 7.1 L 7.3 L Phosphorus 3.7 Magnesium 1.6 L Iron TIBC % Saturation Direct Bilirubin Triglycerides 159 Cholesterol 138 LDL Cholesterol Direct 58 HDL Cholesterol 36 TSH 3rd Generation Prolactin 4.8 Venous Blood Potassium 2.8 L Urine Color Urine Appearance Urine pH Ur Specific [place] Urine Protein Urine Glucose (UA) Urine Ketones Urine Blood Urine Nitrate Urine Bilirubin Urine Urobilinogen Ur Leukocyte Esterase Urine RBC Urine WBC Ur Epithelial Cells Urine Bacteria Urine Osmolality Ur Random Sodium Salicylates Acetaminophen Alcohol, Quantitative 02/02/17 02/02/17 02/02/17 08:30 08:30 11:30 pO2 VBG pH VBG pCO2 VBG HCO3 VBG Total CO2 VBG O2 Sat (Calc) VBG Base Excess VBG Potassium Sodium 120 L Chloride 84 L Glucose Lactate FiO2 Potassium 3.8 Carbon Dioxide 28 Anion Gap 12 BUN 9 Creatinine 0.7 Est GFR ( Amer) > 60 Est GFR (Non-Af Amer) > 60 POC Glucose (mg/dL) Random Glucose 258 H Serum Osmolality Calcium 7.5 L Phosphorus Magnesium Iron TIBC % Saturation Direct Bilirubin 0.7 H Triglycerides Cholesterol LDL Cholesterol Direct HDL Cholesterol TSH 3rd Generation Prolactin Venous Blood Potassium Urine Color Urine Appearance Urine pH Ur Specific [place] Urine Protein Urine Glucose (UA) Urine Ketones Urine Blood Urine Nitrate Urine Bilirubin Urine Urobilinogen Ur Leukocyte Esterase Urine RBC Urine WBC Ur Epithelial Cells Urine Bacteria Urine Osmolality Ur Random Sodium Salicylates Acetaminophen < 10.0 L Alcohol, Quantitative < 10 02/02/17 02/02/17 11:30 11:40 pO2 VBG pH VBG pCO2 VBG HCO3 VBG Total CO2 VBG O2 Sat (Calc) VBG Base Excess VBG Potassium Sodium Chloride Glucose Lactate FiO2 Potassium Carbon Dioxide Anion Gap BUN Creatinine Est GFR ( Amer) Est GFR (Non-Af Amer) POC Glucose (mg/dL) 292 H Random Glucose Serum Osmolality Calcium Phosphorus Magnesium Iron 80 TIBC 227 L % Saturation 35 Direct Bilirubin Triglycerides Cholesterol LDL Cholesterol Direct HDL Cholesterol TSH 3rd Generation Prolactin Venous Blood Potassium Urine Color Urine Appearance Urine pH Ur Specific [place] Urine Protein Urine Glucose (UA) Urine Ketones Urine Blood Urine Nitrate Urine Bilirubin Urine Urobilinogen Ur Leukocyte Esterase Urine RBC Urine WBC Ur Epithelial Cells Urine Bacteria Urine Osmolality Ur Random Sodium Salicylates < 1 L Acetaminophen Alcohol, Quantitative Attending/Attestation - Attestation I have personally seen and examined this patient.: Yes I have fully participated in the care of the patient.: Yes I have reviewed all pertinent clinical information: Yes Notes (Text): 02/02/17 12:28 I have seen and examined patient with GI fellow. Agree with above documentation with the following additions. In brief, this is a 56 year old female with history of DM, HTN who presents with complaint of shortness of breath, fatigue for the past 3 days. GI called for evaluation of elevated LFTs. In addition to presenting symptoms she describes loose, watery diarrhea up to 4 bowel movements daily along with facial swelling. She denies nausea, vomiting, fever/chills, weight loss, rectal bleeding, jaundice, pruritis, excessive ETOH/tylenol use, herbal medication use, or sick contacts. She had an EGD/colonoscopy 3 months ago in [facility] which were normal as per patient. DM HTN Sepsis, unclear etiology with profound electrolyte disturbance Transaminitis - etiology potentially multifactorial including ischemic (patient hypotensive on initial presentation), sepsis, ?underlying liver disease - Liquid diet as tolerated - Obtain abdominal US - Obtain autoimmune and viral hepatitis panels, continue to monitor LFTs - Electrolyte replacement and RTA workup as per medical team - Obtain stool studies (culture, c-difficile, O/P) - Will continue to monitor patient clinical course
--- NOTE | 2017-02-02 11:02 | CP.PCM.PN ---
Objective - Vital Signs/Intake and Output Vital Signs (last 24 hours): Temp Pulse Resp BP Pulse Ox 98.2 F 85 18 122/73 99 02/02/17 07:00 02/02/17 09:35 02/02/17 07:00 02/02/17 09:35 02/02/17 07:00 - Medications Medications: Current Medications Heparin Sodium (Porcine) (Heparin) 5,000 units SC Q12 ARINA PRN Reason: Protocol Last Admin: 02/02/17 09:25 Dose: 5,000 units Dextrose (Dextrose 5% In Water 1000 Ml) 1,000 mls @ 500 mls/hr IV .Q2H [facility] Stop: 02/02/17 13:31 Vancomycin HCl (Vancomycin 1gm) 1 gm in 250 mls @ 167 mls/hr IVPB Q12H [facility]INA PRN Reason: Protocol Piperacillin Sod/Tazobactam Sod (Zosyn 3.375 In Ns 100ml) 100 mls @ 200 mls/hr IVPB Q6 ARINA PRN Reason: Protocol Stop: 02/02/17 18:29 Insulin Human Lispro (Humalog Low) 0 units SC Q6H ARINA PRN Reason: Protocol Metoprolol Tartrate (Lopressor) 25 mg PO DAILY [facility] Last Admin: 02/02/17 09:35 Dose: 25 mg Pantoprazole Sodium (Protonix Ec Tab) 40 mg PO 0600 [facility] - Labs Labs: 02/02/17 08:30 PT 11.9 Seconds (9.9-11.8) H 02/02/17 03:05 INR 1.10 (0.93-1.08) H 02/02/17 03:05 APTT 24.3 Seconds (23.7-30.8) 02/02/17 03:05
[2017-02-02] MEDS: Vancomycin 1gm in NS 250ml 1 GM/250 ML BAG IVPB SCH ×2 (11:21→22:23)
[2017-02-02] MEDS: Piperacillin/Tazobact 3.375 gm 100 ML IVPB SCH ×2 (11:28→18:57)
[2017-02-02 11:56] LABS: BILIRUBIN,DIRECT 0.7 mg/dL (0.0-0.4); BLOOD UREA NITROGEN 9 mg/dL (7-21); CALCIUM 7.5 mg/dL (8.4-10.5); CARBON DIOXIDE 28 mmol/L (21-33); CHLORIDE 84 mmol/L (98-107); GFR AFRICAN-AMERICAN > 60; GLUCOSE,RANDOM 258 mg/dL (70-110); POTASSIUM 3.8 mmol/L (3.6-5.0); SODIUM 120 mmol/L (132-148)
[2017-02-02 12:09] LABS: IRON 80 ug/dL (45-180)
[2017-02-02 13:30] VITALS: BMI 33.8
[2017-02-02 13:49] LABS: CORTISOL AM 12.2 ug/dL (4.46-22.7)
--- NOTE | 2017-02-02 13:53 | CP.CCUPN ---
CCU Subjective - Physician Review Events Since Last Encounter (Free Text): 02/02/17 13:50 Admitted to ICU early this AM Subjective (Free Text): 02/02/17 13:50 Critical care progress note for Dr. Leticia Ahn. PGY-1 Pt S & E at bedside Pt reports episodes of diarrhea, weakness, insomnia. Denies current N/V/F/C, SOB, CP, ab pain. Critical Care Time Spent (in minutes): 35 CCU Objective - Vital Signs / Intake & Output Vital Signs (Last 4 hours): Vital Signs Temp Pulse Resp BP 02/02/17 13:13 98.1 F 87 20 139/80 Intake and Output (Last 8hrs): Intake & Output 02/01/17 02/02/17 02/02/17 22:59 06:59 14:59 Weight 83.915 kg - Physical Exam Head: Positive for: Atraumatic, Normocephalic Extroacular Muscles: Positive for: EOMI Conjunctiva: Positive for: Normal Ears: Positive for: Normal Mouth: Positive for: Dry Pharnyx: Positive for: Normal. Negative for: ERYTHEMA, EXUDATE, TONSILS ENLARGED Nose (External): Positive for: Atraumatic Neck: Positive for: Normal Range of Motion Respiratory/Chest: Positive for: Clear to Auscultation, Good Air Exchange. Negative for: Respiratory Distress, Accessory Muscle Use, Rales, Rhonchi, Tachypneic Cardiovascular: Positive for: Regular Rate and Rhythm, Normal S1, S2. Negative for: Murmurs Abdomen: Positive for: Normal Bowel Sounds. Negative for: Tenderness, Distention, Peritoneal Signs Back: Positive for: Normal Inspection Upper Extremity: Positive for: Normal Inspection. Negative for: Cyanosis, Edema Lower Extremity: Positive for: Normal Inspection. Negative for: Edema Neurological: Positive for: GCS=15, CN II-XII Intact, Speech Normal Skin: Positive for: Warm, Dry, Normal Color. Negative for: Rashes Psychiatric: Positive for: Alert, Oriented x 3, Normal Insight, Normal Concentration - Medications Active Medications: Active Medications Generic Name Dose Route Start Last Admin Trade Name Freq PRN Reason Stop Dose Admin Heparin Sodium (Porcine) 5,000 units 02/02/17 10:00 02/02/17 09:25 Heparin SC 5,000 units Q12 ARINA Administration Protocol Vancomycin HCl 1 gm in 250 mls @ 167 mls/hr 02/02/17 11:00 02/02/17 11:21 Vancomycin 1gm IVPB 167 mls/hr Q12H ARINA Administration Protocol Piperacillin Sod/Tazobactam Sod 100 mls @ 200 mls/hr 02/02/17 12:00 02/02/17 11:28 Zosyn 3.375 In Ns 100ml IVPB 02/02/17 18:29 200 mls/hr Q6 ARINA Administration Protocol Insulin Human Lispro 0 units 02/02/17 16:30 Humalog Low SC ACHS ARINA Protocol Metoprolol Tartrate 25 mg 02/02/17 10:00 02/02/17 09:35 Lopressor PO 25 mg DAILY ARINA Administration Pantoprazole Sodium 40 mg 02/03/17 06:00 Protonix Ec Tab PO 0600 [facility] - Patient Studies Lab Studies: Lab Studies 02/02/17 02/02/17 02/02/17 Range/Units 11:40 11:30 11:30 pO2 (30-55) mm/Hg VBG pH (7.32-7.43) VBG pCO2 (40-60) VBG HCO3 (21-28) mmol/l VBG Total CO2 (22-28) mmol.L VBG O2 Sat (Calc) (40-65) % VBG Base Excess (0.0-2.0) mmol/L VBG Potassium (3.6-5.2) mmol/L Sodium 120 L (132-148) mmol/L Chloride 84 L (98-107) mmol/L Glucose (65-105) mg/dl Lactate (0.7-2.1) mmol/L FiO2 % Potassium 3.8 (3.6-5.0) mmol/L Carbon Dioxide 28 (21-33) mmol/L Anion Gap 12 (10-20) BUN 9 (7-21) mg/dL Creatinine 0.7 (0.5-1.4) mg/dL Est GFR ( Amer) > 60 Est GFR (Non-Af Amer) > 60 POC Glucose (mg/dL) 292 H (65-110) mg/dL Random Glucose 258 H (70-110) mg/dL Hemoglobin A1c (4.2-6.5) % Serum Osmolality (271-296) mosm/kg Calcium 7.5 L (8.4-10.5) mg/dL Phosphorus (2.5-4.5) mg/dL Magnesium (1.7-2.2) mg/dL Iron 80 (45-180) ug/dL TIBC 227 L (265-497) ug/dL % Saturation 35 (20-55) % Direct Bilirubin 0.7 H (0.0-0.4) mg/dL Triglycerides (35-160) mg/dL Cholesterol (130-200) mg/dL LDL Cholesterol Direct (0-129) mg/dL HDL Cholesterol (29-60) mg/dL TSH 3rd Generation (0.46-4.68) mIU/mL Prolactin (3.0-18.9) ng/mL Venous Blood Potassium (3.6-5.2) mmol/L Urine Color (YELLOW) Urine Appearance (CLEAR) Urine pH (4.7-8.0) Ur Specific [place] (1.005-1.035) Urine Protein (<30 mg/dL) mg/dL Urine Glucose (UA) (NEGATIVE) mg/dL Urine Ketones (NEGATIVE) mg/dL Urine Blood (NEGATIVE) Urine Nitrate (NEGATIVE) Urine Bilirubin (NEGATIVE) Urine Urobilinogen (<1 E.U./dL) E.U./dL Ur Leukocyte Esterase (NEGATIVE) Alonso/uL Urine RBC (0-2) /hpf Urine WBC (0-6) /hpf Ur Epithelial Cells (0-5) /hpf Urine Bacteria (NEG) Urine Osmolality (50-645) mosm/kg Ur Random Sodium meq/L Urine Magnesium mg/dL Salicylates < 1 L (2.0-20.0) mg/dL Acetaminophen (10.0-20.0) ug/ml Alcohol, Quantitative (0-10) mg/dL Hepatitis A IgM Ab (NEGATIVE) Hep Bs Antigen (NEGATIVE) Hep B Core IgM Ab (NEGATIVE) Hepatitis C Antibody (NEGATIVE) 02/02/17 02/02/17 02/02/17 Range/Units 08:30 08:30 08:30 pO2 (30-55) mm/Hg VBG pH (7.32-7.43) VBG pCO2 (40-60) VBG HCO3 (21-28) mmol/l VBG Total CO2 (22-28) mmol.L VBG O2 Sat (Calc) (40-65) % VBG Base Excess (0.0-2.0) mmol/L VBG Potassium (3.6-5.2) mmol/L Sodium 123 L (132-148) mmol/L Chloride 85 L (98-107) mmol/L Glucose (65-105) mg/dl Lactate (0.7-2.1) mmol/L FiO2 % Potassium 3.0 L (3.6-5.0) mmol/L Carbon Dioxide 28 (21-33) mmol/L Anion Gap 13 (10-20) BUN 10 (7-21) mg/dL Creatinine 0.7 (0.5-1.4) mg/dL Est GFR ( Amer) > 60 Est GFR (Non-Af Amer) > 60 POC Glucose (mg/dL) (65-110) mg/dL Random Glucose 186 H (70-110) mg/dL Hemoglobin A1c (4.2-6.5) % Serum Osmolality (271-296) mosm/kg Calcium 7.3 L (8.4-10.5) mg/dL Phosphorus 3.7 (2.5-4.5) mg/dL Magnesium 1.6 L (1.7-2.2) mg/dL Iron (45-180) ug/dL TIBC (265-497) ug/dL % Saturation (20-55) % Direct Bilirubin (0.0-0.4) mg/dL Triglycerides (35-160) mg/dL Cholesterol (130-200) mg/dL LDL Cholesterol Direct (0-129) mg/dL HDL Cholesterol (29-60) mg/dL TSH 3rd Generation (0.46-4.68) mIU/mL Prolactin (3.0-18.9) ng/mL Venous Blood Potassium (3.6-5.2) mmol/L Urine Color (YELLOW) Urine Appearance (CLEAR) Urine pH (4.7-8.0) Ur Specific [place] (1.005-1.035) Urine Protein (<30 mg/dL) mg/dL Urine Glucose (UA) (NEGATIVE) mg/dL Urine Ketones (NEGATIVE) mg/dL Urine Blood (NEGATIVE) Urine Nitrate (NEGATIVE) Urine Bilirubin (NEGATIVE) Urine Urobilinogen (<1 E.U./dL) E.U./dL Ur Leukocyte Esterase (NEGATIVE) Alonso/uL Urine RBC (0-2) /hpf Urine WBC (0-6) /hpf Ur Epithelial Cells (0-5) /hpf Urine Bacteria (NEG) Urine Osmolality (50-645) mosm/kg Ur Random Sodium meq/L Urine Magnesium mg/dL Salicylates (2.0-20.0) mg/dL Acetaminophen < 10.0 L (10.0-20.0) ug/ml Alcohol, Quantitative < 10 (0-10) mg/dL Hepatitis A IgM Ab (NEGATIVE) Hep Bs Antigen (NEGATIVE) Hep B Core IgM Ab (NEGATIVE) Hepatitis C Antibody (NEGATIVE) 02/02/17 02/02/17 02/02/17 Range/Units 07:30 07:30 07:30 pO2 59 H (30-55) mm/Hg VBG pH 7.48 H (7.32-7.43) VBG pCO2 43.0 (40-60) VBG HCO3 32.0 H (21-28) mmol/l VBG Total CO2 33.3 H (22-28) mmol.L VBG O2 Sat (Calc) 92.9 H (40-65) % VBG Base Excess 7.6 H (0.0-2.0) mmol/L VBG Potassium 2.8 L (3.6-5.2) mmol/L Sodium 122.0 L 123 L (132-148) mmol/L Chloride 86.0 L 85 L D (98-107) mmol/L Glucose 210 H (65-105) mg/dl Lactate 1.4 (0.7-2.1) mmol/L FiO2 21.0 % Potassium 2.9 L* D (3.6-5.0) mmol/L Carbon Dioxide 30 (21-33) mmol/L Anion Gap 11 (10-20) BUN 10 (7-21) mg/dL Creatinine 0.7 (0.5-1.4) mg/dL Est GFR ( Amer) > 60 Est GFR (Non-Af Amer) > 60 POC Glucose (mg/dL) (65-110) mg/dL Random Glucose 195 H (70-110) mg/dL Hemoglobin A1c (4.2-6.5) % Serum Osmolality (271-296) mosm/kg Calcium 7.1 L (8.4-10.5) mg/dL Phosphorus (2.5-4.5) mg/dL Magnesium (1.7-2.2) mg/dL Iron (45-180) ug/dL TIBC (265-497) ug/dL % Saturation (20-55) % Direct Bilirubin (0.0-0.4) mg/dL Triglycerides 159 (35-160) mg/dL Cholesterol 138 (130-200) mg/dL LDL Cholesterol Direct 58 (0-129) mg/dL HDL Cholesterol 36 (29-60) mg/dL TSH 3rd Generation (0.46-4.68) mIU/mL Prolactin 4.8 (3.0-18.9) ng/mL Venous Blood Potassium 2.8 L (3.6-5.2) mmol/L Urine Color (YELLOW) Urine Appearance (CLEAR) Urine pH (4.7-8.0) Ur Specific [place] (1.005-1.035) Urine Protein (<30 mg/dL) mg/dL Urine Glucose (UA) (NEGATIVE) mg/dL Urine Ketones (NEGATIVE) mg/dL Urine Blood (NEGATIVE) Urine Nitrate (NEGATIVE) Urine Bilirubin (NEGATIVE) Urine Urobilinogen (<1 E.U./dL) E.U./dL Ur Leukocyte Esterase (NEGATIVE) Alonso/uL Urine RBC (0-2) /hpf Urine WBC (0-6) /hpf Ur Epithelial Cells (0-5) /hpf Urine Bacteria (NEG) Urine Osmolality (50-645) mosm/kg Ur Random Sodium meq/L Urine Magnesium mg/dL Salicylates (2.0-20.0) mg/dL Acetaminophen (10.0-20.0) ug/ml Alcohol, Quantitative (0-10) mg/dL Hepatitis A IgM Ab Negative (NEGATIVE) Hep Bs Antigen Negative (NEGATIVE) Hep B Core IgM Ab Negative (NEGATIVE) Hepatitis C Antibody Negative (NEGATIVE) 02/02/17 02/02/17 02/02/17 Range/Units 07:30 06:30 06:24 pO2 (30-55) mm/Hg VBG pH (7.32-7.43) VBG pCO2 (40-60) VBG HCO3 (21-28) mmol/l VBG Total CO2 (22-28) mmol.L VBG O2 Sat (Calc) (40-65) % VBG Base Excess (0.0-2.0) mmol/L VBG Potassium (3.6-5.2) mmol/L Sodium (132-148) mmol/L Chloride (98-107) mmol/L Glucose (65-105) mg/dl Lactate (0.7-2.1) mmol/L FiO2 % Potassium (3.6-5.0) mmol/L Carbon Dioxide (21-33) mmol/L Anion Gap (10-20) BUN (7-21) mg/dL Creatinine (0.5-1.4) mg/dL Est GFR ( Amer) Est GFR (Non-Af Amer) POC Glucose (mg/dL) (65-110) mg/dL Random Glucose (70-110) mg/dL Hemoglobin A1c 6.8 H (4.2-6.5) % Serum Osmolality 260 L (271-296) mosm/kg Calcium (8.4-10.5) mg/dL Phosphorus (2.5-4.5) mg/dL Magnesium (1.7-2.2) mg/dL Iron (45-180) ug/dL TIBC (265-497) ug/dL % Saturation (20-55) % Direct Bilirubin (0.0-0.4) mg/dL Triglycerides (35-160) mg/dL Cholesterol (130-200) mg/dL LDL Cholesterol Direct (0-129) mg/dL HDL Cholesterol (29-60) mg/dL TSH 3rd Generation 1.18 (0.46-4.68) mIU/mL Prolactin (3.0-18.9) ng/mL Venous Blood Potassium (3.6-5.2) mmol/L Urine Color (YELLOW) Urine Appearance (CLEAR) Urine pH (4.7-8.0) Ur Specific [place] (1.005-1.035) Urine Protein (<30 mg/dL) mg/dL Urine Glucose (UA) (NEGATIVE) mg/dL Urine Ketones (NEGATIVE) mg/dL Urine Blood (NEGATIVE) Urine Nitrate (NEGATIVE) Urine Bilirubin (NEGATIVE) Urine Urobilinogen (<1 E.U./dL) E.U./dL Ur Leukocyte Esterase (NEGATIVE) Alonso/uL Urine RBC (0-2) /hpf Urine WBC (0-6) /hpf Ur Epithelial Cells (0-5) /hpf Urine Bacteria (NEG) Urine Osmolality (50-645) mosm/kg Ur Random Sodium meq/L Urine Magnesium 1.4 mg/dL Salicylates (2.0-20.0) mg/dL Acetaminophen (10.0-20.0) ug/ml Alcohol, Quantitative (0-10) mg/dL Hepatitis A IgM Ab (NEGATIVE) Hep Bs Antigen (NEGATIVE) Hep B Core IgM Ab (NEGATIVE) Hepatitis C Antibody (NEGATIVE) 02/02/17 02/02/17 Range/Units 06:24 04:45 pO2 (30-55) mm/Hg VBG pH (7.32-7.43) VBG pCO2 (40-60) VBG HCO3 (21-28) mmol/l VBG Total CO2 (22-28) mmol.L VBG O2 Sat (Calc) (40-65) % VBG Base Excess (0.0-2.0) mmol/L VBG Potassium (3.6-5.2) mmol/L Sodium (132-148) mmol/L Chloride (98-107) mmol/L Glucose (65-105) mg/dl Lactate (0.7-2.1) mmol/L FiO2 % Potassium (3.6-5.0) mmol/L Carbon Dioxide (21-33) mmol/L Anion Gap (10-20) BUN (7-21) mg/dL Creatinine (0.5-1.4) mg/dL Est GFR ( Amer) Est GFR (Non-Af Amer) POC Glucose (mg/dL) (65-110) mg/dL Random Glucose (70-110) mg/dL Hemoglobin A1c (4.2-6.5) % Serum Osmolality (271-296) mosm/kg Calcium (8.4-10.5) mg/dL Phosphorus (2.5-4.5) mg/dL Magnesium (1.7-2.2) mg/dL Iron (45-180) ug/dL TIBC (265-497) ug/dL % Saturation (20-55) % Direct Bilirubin (0.0-0.4) mg/dL Triglycerides (35-160) mg/dL Cholesterol (130-200) mg/dL LDL Cholesterol Direct (0-129) mg/dL HDL Cholesterol (29-60) mg/dL TSH 3rd Generation (0.46-4.68) mIU/mL Prolactin (3.0-18.9) ng/mL Venous Blood Potassium (3.6-5.2) mmol/L Urine Color Yellow (YELLOW) Urine Appearance Clear (CLEAR) Urine pH 6.5 (4.7-8.0) Ur Specific [place] <= 1.005 (1.005-1.035) Urine Protein Negative (<30 mg/dL) mg/dL Urine Glucose (UA) Negative (NEGATIVE) mg/dL Urine Ketones Trace H (NEGATIVE) mg/dL Urine Blood Trace-intact H (NEGATIVE) Urine Nitrate Negative (NEGATIVE) Urine Bilirubin Negative (NEGATIVE) Urine Urobilinogen 0.2 (<1 E.U./dL) E.U./dL Ur Leukocyte Esterase Small H (NEGATIVE) Alonso/uL Urine RBC 0 - 2 (0-2) /hpf Urine WBC 2 - 5 (0-6) /hpf Ur Epithelial Cells 3 - 4 (0-5) /hpf Urine Bacteria Occ (NEG) Urine Osmolality 186 (50-645) mosm/kg Ur Random Sodium 61 meq/L Urine Magnesium mg/dL Salicylates (2.0-20.0) mg/dL Acetaminophen (10.0-20.0) ug/ml Alcohol, Quantitative (0-10) mg/dL Hepatitis A IgM Ab (NEGATIVE) Hep Bs Antigen (NEGATIVE) Hep B Core IgM Ab (NEGATIVE) Hepatitis C Antibody (NEGATIVE) Laboratory Results - last 24 hr 02/02/17 02/02/17 02/02/17 04:45 06:24 06:24 pO2 VBG pH VBG pCO2 VBG HCO3 VBG Total CO2 VBG O2 Sat (Calc) VBG Base Excess VBG Potassium Sodium Chloride Glucose Lactate FiO2 Potassium Carbon Dioxide Anion Gap BUN Creatinine Est GFR ( Amer) Est GFR (Non-Af Amer) POC Glucose (mg/dL) Random Glucose Hemoglobin A1c Serum Osmolality Calcium Phosphorus Magnesium Iron TIBC % Saturation Direct Bilirubin Triglycerides Cholesterol LDL Cholesterol Direct HDL Cholesterol TSH 3rd Generation Prolactin Venous Blood Potassium Urine Color Yellow Urine Appearance Clear Urine pH 6.5 Ur Specific [place] <= 1.005 Urine Protein Negative Urine Glucose (UA) Negative Urine Ketones Trace H Urine Blood Trace-intact H Urine Nitrate Negative Urine Bilirubin Negative Urine Urobilinogen 0.2 Ur Leukocyte Esterase Small H Urine RBC 0 - 2 Urine WBC 2 - 5 Ur Epithelial Cells 3 - 4 Urine Bacteria Occ Urine Osmolality 186 Ur Random Sodium 61 Urine Magnesium 1.4 Salicylates Acetaminophen Alcohol, Quantitative Hepatitis A IgM Ab Hep Bs Antigen Hep B Core IgM Ab Hepatitis C Antibody 02/02/17 02/02/17 02/02/17 06:30 07:30 07:30 pO2 VBG pH VBG pCO2 VBG HCO3 VBG Total CO2 VBG O2 Sat (Calc) VBG Base Excess VBG Potassium Sodium 123 L Chloride 85 L D Glucose Lactate FiO2 Potassium 2.9 L* D Carbon Dioxide 30 Anion Gap 11 BUN 10 Creatinine 0.7 Est GFR ( Amer) > 60 Est GFR (Non-Af Amer) > 60 POC Glucose (mg/dL) Random Glucose 195 H Hemoglobin A1c 6.8 H Serum Osmolality 260 L Calcium 7.1 L Phosphorus Magnesium Iron TIBC % Saturation Direct Bilirubin Triglycerides 159 Cholesterol 138 LDL Cholesterol Direct 58 HDL Cholesterol 36 TSH 3rd Generation 1.18 Prolactin 4.8 Venous Blood Potassium Urine Color Urine Appearance Urine pH Ur Specific [place] Urine Protein Urine Glucose (UA) Urine Ketones Urine Blood Urine Nitrate Urine Bilirubin Urine Urobilinogen Ur Leukocyte Esterase Urine RBC Urine WBC Ur Epithelial Cells Urine Bacteria Urine Osmolality Ur Random Sodium Urine Magnesium Salicylates Acetaminophen Alcohol, Quantitative Hepatitis A IgM Ab Hep Bs Antigen Hep B Core IgM Ab Hepatitis C Antibody 02/02/17 02/02/17 02/02/17 07:30 07:30 08:30 pO2 59 H VBG pH 7.48 H VBG pCO2 43.0 VBG HCO3 32.0 H VBG Total CO2 33.3 H VBG O2 Sat (Calc) 92.9 H VBG Base Excess 7.6 H VBG Potassium 2.8 L Sodium 122.0 L 123 L Chloride 86.0 L 85 L Glucose 210 H Lactate 1.4 FiO2 21.0 Potassium 3.0 L Carbon Dioxide 28 Anion Gap 13 BUN 10 Creatinine 0.7 Est GFR ( Amer) > 60 Est GFR (Non-Af Amer) > 60 POC Glucose (mg/dL) Random Glucose 186 H Hemoglobin A1c Serum Osmolality Calcium 7.3 L Phosphorus 3.7 Magnesium 1.6 L Iron TIBC % Saturation Direct Bilirubin Triglycerides Cholesterol LDL Cholesterol Direct HDL Cholesterol TSH 3rd Generation Prolactin Venous Blood Potassium 2.8 L Urine Color Urine Appearance Urine pH Ur Specific [place] Urine Protein Urine Glucose (UA) Urine Ketones Urine Blood Urine Nitrate Urine Bilirubin Urine Urobilinogen Ur Leukocyte Esterase Urine RBC Urine WBC Ur Epithelial Cells Urine Bacteria Urine Osmolality Ur Random Sodium Urine Magnesium Salicylates Acetaminophen Alcohol, Quantitative Hepatitis A IgM Ab Negative Hep Bs Antigen Negative Hep B Core IgM Ab Negative Hepatitis C Antibody Negative 02/02/17 02/02/17 02/02/17 08:30 08:30 11:30 pO2 VBG pH VBG pCO2 VBG HCO3 VBG Total CO2 VBG O2 Sat (Calc) VBG Base Excess VBG Potassium Sodium 120 L Chloride 84 L Glucose Lactate FiO2 Potassium 3.8 Carbon Dioxide 28 Anion Gap 12 BUN 9 Creatinine 0.7 Est GFR ( Amer) > 60 Est GFR (Non-Af Amer) > 60 POC Glucose (mg/dL) Random Glucose 258 H Hemoglobin A1c Serum Osmolality Calcium 7.5 L Phosphorus Magnesium Iron TIBC % Saturation Direct Bilirubin 0.7 H Triglycerides Cholesterol LDL Cholesterol Direct HDL Cholesterol TSH 3rd Generation Prolactin Venous Blood Potassium Urine Color Urine Appearance Urine pH Ur Specific [place] Urine Protein Urine Glucose (UA) Urine Ketones Urine Blood Urine Nitrate Urine Bilirubin Urine Urobilinogen Ur Leukocyte Esterase Urine RBC Urine WBC Ur Epithelial Cells Urine Bacteria Urine Osmolality Ur Random Sodium Urine Magnesium Salicylates Acetaminophen < 10.0 L Alcohol, Quantitative < 10 Hepatitis A IgM Ab Hep Bs Antigen Hep B Core IgM Ab Hepatitis C Antibody 02/02/17 02/02/17 11:30 11:40 pO2 VBG pH VBG pCO2 VBG HCO3 VBG Total CO2 VBG O2 Sat (Calc) VBG Base Excess VBG Potassium Sodium Chloride Glucose Lactate FiO2 Potassium Carbon Dioxide Anion Gap BUN Creatinine Est GFR ( Amer) Est GFR (Non-Af Amer) POC Glucose (mg/dL) 292 H Random Glucose Hemoglobin A1c Serum Osmolality Calcium Phosphorus Magnesium Iron 80 TIBC 227 L % Saturation 35 Direct Bilirubin Triglycerides Cholesterol LDL Cholesterol Direct HDL Cholesterol TSH 3rd Generation Prolactin Venous Blood Potassium Urine Color Urine Appearance Urine pH Ur Specific [place] Urine Protein Urine Glucose (UA) Urine Ketones Urine Blood Urine Nitrate Urine Bilirubin Urine Urobilinogen Ur Leukocyte Esterase Urine RBC Urine WBC Ur Epithelial Cells Urine Bacteria Urine Osmolality Ur Random Sodium Urine Magnesium Salicylates < 1 L Acetaminophen Alcohol, Quantitative Hepatitis A IgM Ab Hep Bs Antigen Hep B Core IgM Ab Hepatitis C Antibody EKG/Cardiology Studies: Cardiology / EKG Studies 02/02/17 02:56 ELECTROCARDIOGRAM Stat Comment: Reason For Exam: HIGH BLOOD SUGAR Fingerstick Blood Sugar Results: 292 Review of Systems - Review of Systems All systems: reviewed and no additional remarkable complaints except - Constitutional Constitutional: absent: Fever, Chills - EENT Nose/Mouth/Throat: Dry Mouth - Cardiovascular Cardiovascular: UNREMARKABLE. absent: Chest Pain - Respiratory Respiratory: UNREMARKABLE. absent: Cough - Gastrointestinal Gastrointestinal: Abdominal Pain (occasional LLQ ab pain), Diarrhea. absent: Constipation, Nausea - Musculoskeletal Musculoskeletal: Muscle Weakness - Neurological Neurological: absent: Headaches - Psychiatric Psychiatric: Abnormal Sleep Pattern - Endocrine Endocrine: Polydipsia, Polyuria Critical Care Progress Note - Extremities/Vascular Does the Patient have a Central Venous Catheter?: No Does the Patient need a Central Venous Catheter?: No Does the Patient have a Barnes Catheter?: No Does the Patient need a Barnes Catheter?: No - Prophylaxis GI Prophylaxis GI: PPI - Prophylaxis DVT Prophylaxis DVT: Heparin SQ, SCDs - Nutrition Nutrition: Nutrition Category Date Time Status Consistent Carbohydrate [DIET] Diets 02/02/17 Breakfast Ordered Assessment/Plan - Assessment and Plan (Free Text) Assessment: 56F w/PMH sig for DM, HTN admitted for severe electrolyte imbalances Plan: Neuro AOx3 Stable Monitor CVS Few episodes of tachycardia Now normotensive Continue Lopressor (home med) with parameters lipid panel WNL TSH WNL Prolactin WNL Monitor Pulm SaO2 99% on RA Target SaO2> 94% Stable Nephro Hyponatremia - Na 120 from 123 from 113 Given DDAVP, NS Hypokalemia -resolved K now 3.8 from 3.0 from 2.9 Hypochloridemia 84 from 84 Hypomagesemia 1.6 from 0.8 Hypophosphatemia resolved- 3.7 from 2.2 FU AM cortisol FU Urine aldosterone FU 21 hydroxylase Ab FU plasma ACTH FU urine Cl FU DHEA [place] FU Thyroid Ab Monitor Nephro following GI Diabetic diet D bili 0.7 T bili 2.1 FU ferritin GI following- ordered IgA, IgG, IgM studies, FU SHARI, FU Liver/kidney ELVIN Ab, FU Smooth muscle Ab FU Ab U/S Voids freely Endo Diabetic diet BS 292 ISS Accuchecks Target euglycemia ID Afebrile over last 24H Leukopenia of 4 Zosyn vanc FU Blood cx FU urine cx FU Stool Cx FU stool WBCs ID following MSK OOBTC GI/DVT ppx Heparin SCDs Protonix Dispo Continue ICUc care DW attending Anabelle, PGY-1 - Date & Time Date: 02/02/17 Time: 07:30
--- NOTE | 2017-02-02 14:20 | CP.PCM.CON ---
History of Present Illness - History of Present Illness History of Present Illness: Infectious Disease Consultation: February 02, 2017 56 yo female with presentation of SOB and generalized weakness. The patient states she had multiple episodes of diarrhea. The patient was found with highly altered electrolytes. The patient does not have complaints now. Initially had hypotension and tachycardia. The paitent has had resolvement of most of her electrolyte abnormalities. The patienet has obesity. PMHx: HTN, and DM PSHx: Lasik Allergies: NKDA Social Hx: No tobacco, no illicit drug use, Social EtOH use Active Medications Heparin Sodium (Porcine) (Heparin) 5,000 units SC Q12 [facility] PRN Reason: Protocol Last Admin: 02/02/17 09:25 Dose: 5,000 units Vancomycin HCl (Vancomycin 1gm) 1 gm in 250 mls @ 167 mls/hr IVPB Q12H [facility] PRN Reason: Protocol Last Admin: 02/02/17 11:21 Dose: 167 mls/hr Piperacillin Sod/Tazobactam Sod (Zosyn 3.375 In Ns 100ml) 100 mls @ 200 mls/hr IVPB Q6 [facility] PRN Reason: Protocol Stop: 02/02/17 18:29 Last Admin: 02/02/17 11:28 Dose: 200 mls/hr Insulin Human Lispro (Humalog Low) 0 units SC ACHS [facility] PRN Reason: Protocol Metoprolol Tartrate (Lopressor) 25 mg PO DAILY [facility] Last Admin: 02/02/17 09:35 Dose: 25 mg Pantoprazole Sodium (Protonix Ec Tab) 40 mg PO 0600 [facility] Family Hx: none given ROS: SOB, generalized weakness, diarrhea. No fevers, chills, nausea, vomiting, diarrhea, melena, hematuria, hematemesis, hematochezia, depression, anxiety. Past Patient History - Past Social History Smoking Status: Never Smoked - CARDIAC Hx Hypertension: Yes - ENDOCRINE/METABOLIC Hx Diabetes Mellitus Type 2: Yes - MUSCULOSKELETAL/RHEUMATOLOGICAL Hx Falls: No - PSYCHIATRIC Hx Substance Use: No Meds Allergies/Adverse Reactions: Allergies Allergy/AdvReac Type Severity Reaction Status Date / Time No Known Allergies Allergy Verified 02/02/17 02:52 - Medications Medications: Current Medications Heparin Sodium (Porcine) (Heparin) 5,000 units SC Q12 [facility] PRN Reason: Protocol Last Admin: 02/02/17 09:25 Dose: 5,000 units Vancomycin HCl (Vancomycin 1gm) 1 gm in 250 mls @ 167 mls/hr IVPB Q12H [facility] PRN Reason: Protocol Last Admin: 02/02/17 11:21 Dose: 167 mls/hr Piperacillin Sod/Tazobactam Sod (Zosyn 3.375 In Ns 100ml) 100 mls @ 200 mls/hr IVPB Q6 [facility] PRN Reason: Protocol Stop: 02/02/17 18:29 Last Admin: 02/02/17 11:28 Dose: 200 mls/hr Insulin Human Lispro (Humalog Low) 0 units SC Q6H [facility] PRN Reason: Protocol Last Admin: 02/02/17 11:54 Dose: 3 units Metoprolol Tartrate (Lopressor) 25 mg PO DAILY [facility] Last Admin: 02/02/17 09:35 Dose: 25 mg Pantoprazole Sodium (Protonix Ec Tab) 40 mg PO 0600 [facility] Physical Exam - Constitutional Appears: Non-toxic, No Acute Distress - Head Exam Head Exam: ATRAUMATIC, NORMOCEPHALIC - Eye Exam Eye Exam: EOMI, PERRL Pupil Exam: NORMAL ACCOMODATION, PERRL - ENT Exam ENT Exam: Mucous Membranes Moist, Normal External Ear Exam, TM's Normal Bilaterally - Neck Exam Neck exam: Positive for: Full Rom, Normal Inspection - Respiratory Exam Respiratory Exam: Clear to Auscultation Bilateral, NORMAL BREATHING PATTERN. absent: Rales, Rhonchi, Wheezes - Cardiovascular Exam Cardiovascular Exam: REGULAR RHYTHM, RRR, +S1, +S2 - GI/Abdominal Exam GI & Abdominal Exam: Normal Bowel Sounds, Soft. absent: Distended, Tenderness - Extremities Exam Extremities exam: Positive for: full ROM, normal inspection - Neurological Exam Neurological exam: Alert, CN II-XII Intact Additional comments: AAO x 2-3 - Psychiatric Exam Psychiatric exam: Agitated, Anxious - Skin Skin Exam: Intact, Normal Color Results - Vital Signs Recent Vital Signs: Last Vital Signs Temp 98.1 F 02/02/17 13:13 Pulse 87 02/02/17 13:13 Resp 20 02/02/17 13:13 BP 139/80 02/02/17 13:13 Pulse Ox 99 02/02/17 07:00 - Labs Result Diagrams: 02/02/17 03:05 02/02/17 11:30 Labs: Laboratory Results - last 24 hr 02/02/17 02/02/17 02/02/17 04:45 06:24 06:24 pO2 VBG pH VBG pCO2 VBG HCO3 VBG Total CO2 VBG O2 Sat (Calc) VBG Base Excess VBG Potassium Sodium Chloride Glucose Lactate FiO2 Potassium Carbon Dioxide Anion Gap BUN Creatinine Est GFR ( Amer) Est GFR (Non-Af Amer) POC Glucose (mg/dL) Random Glucose Hemoglobin A1c Serum Osmolality Calcium Phosphorus Magnesium Iron TIBC % Saturation Direct Bilirubin Triglycerides Cholesterol LDL Cholesterol Direct HDL Cholesterol TSH 3rd Generation Prolactin Venous Blood Potassium Urine Color Yellow Urine Appearance Clear Urine pH 6.5 Ur Specific [place] <= 1.005 Urine Protein Negative Urine Glucose (UA) Negative Urine Ketones Trace H Urine Blood Trace-intact H Urine Nitrate Negative Urine Bilirubin Negative Urine Urobilinogen 0.2 Ur Leukocyte Esterase Small H Urine RBC 0 - 2 Urine WBC 2 - 5 Ur Epithelial Cells 3 - 4 Urine Bacteria Occ Urine Osmolality 186 Ur Random Sodium 61 Urine Magnesium 1.4 Salicylates Acetaminophen Alcohol, Quantitative Hepatitis A IgM Ab Hep Bs Antigen Hep B Core IgM Ab Hepatitis C Antibody 02/02/17 02/02/17 02/02/17 06:30 07:30 07:30 pO2 VBG pH VBG pCO2 VBG HCO3 VBG Total CO2 VBG O2 Sat (Calc) VBG Base Excess VBG Potassium Sodium 123 L Chloride 85 L D Glucose Lactate FiO2 Potassium 2.9 L* D Carbon Dioxide 30 Anion Gap 11 BUN 10 Creatinine 0.7 Est GFR ( Amer) > 60 Est GFR (Non-Af Amer) > 60 POC Glucose (mg/dL) Random Glucose 195 H Hemoglobin A1c 6.8 H Serum Osmolality 260 L Calcium 7.1 L Phosphorus Magnesium Iron TIBC % Saturation Direct Bilirubin Triglycerides 159 Cholesterol 138 LDL Cholesterol Direct 58 HDL Cholesterol 36 TSH 3rd Generation 1.18 Prolactin 4.8 Venous Blood Potassium Urine Color Urine Appearance Urine pH Ur Specific [place] Urine Protein Urine Glucose (UA) Urine Ketones Urine Blood Urine Nitrate Urine Bilirubin Urine Urobilinogen Ur Leukocyte Esterase Urine RBC Urine WBC Ur Epithelial Cells Urine Bacteria Urine Osmolality Ur Random Sodium Urine Magnesium Salicylates Acetaminophen Alcohol, Quantitative Hepatitis A IgM Ab Hep Bs Antigen Hep B Core IgM Ab Hepatitis C Antibody 02/02/17 02/02/17 02/02/17 07:30 07:30 08:30 pO2 59 H VBG pH 7.48 H VBG pCO2 43.0 VBG HCO3 32.0 H VBG Total CO2 33.3 H VBG O2 Sat (Calc) 92.9 H VBG Base Excess 7.6 H VBG Potassium 2.8 L Sodium 122.0 L 123 L Chloride 86.0 L 85 L Glucose 210 H Lactate 1.4 FiO2 21.0 Potassium 3.0 L Carbon Dioxide 28 Anion Gap 13 BUN 10 Creatinine 0.7 Est GFR ( Amer) > 60 Est GFR (Non-Af Amer) > 60 POC Glucose (mg/dL) Random Glucose 186 H Hemoglobin A1c Serum Osmolality Calcium 7.3 L Phosphorus 3.7 Magnesium 1.6 L Iron TIBC % Saturation Direct Bilirubin Triglycerides Cholesterol LDL Cholesterol Direct HDL Cholesterol TSH 3rd Generation Prolactin Venous Blood Potassium 2.8 L Urine Color Urine Appearance Urine pH Ur Specific [place] Urine Protein Urine Glucose (UA) Urine Ketones Urine Blood Urine Nitrate Urine Bilirubin Urine Urobilinogen Ur Leukocyte Esterase Urine RBC Urine WBC Ur Epithelial Cells Urine Bacteria Urine Osmolality Ur Random Sodium Urine Magnesium Salicylates Acetaminophen Alcohol, Quantitative Hepatitis A IgM Ab Negative Hep Bs Antigen Negative Hep B Core IgM Ab Negative Hepatitis C Antibody Negative 02/02/17 02/02/17 02/02/17 08:30 08:30 11:30 pO2 VBG pH VBG pCO2 VBG HCO3 VBG Total CO2 VBG O2 Sat (Calc) VBG Base Excess VBG Potassium Sodium 120 L Chloride 84 L Glucose Lactate FiO2 Potassium 3.8 Carbon Dioxide 28 Anion Gap 12 BUN 9 Creatinine 0.7 Est GFR ( Amer) > 60 Est GFR (Non-Af Amer) > 60 POC Glucose (mg/dL) Random Glucose 258 H Hemoglobin A1c Serum Osmolality Calcium 7.5 L Phosphorus Magnesium Iron TIBC % Saturation Direct Bilirubin 0.7 H Triglycerides Cholesterol LDL Cholesterol Direct HDL Cholesterol TSH 3rd Generation Prolactin Venous Blood Potassium Urine Color Urine Appearance Urine pH Ur Specific [place] Urine Protein Urine Glucose (UA) Urine Ketones Urine Blood Urine Nitrate Urine Bilirubin Urine Urobilinogen Ur Leukocyte Esterase Urine RBC Urine WBC Ur Epithelial Cells Urine Bacteria Urine Osmolality Ur Random Sodium Urine Magnesium Salicylates Acetaminophen < 10.0 L Alcohol, Quantitative < 10 Hepatitis A IgM Ab Hep Bs Antigen Hep B Core IgM Ab Hepatitis C Antibody 02/02/17 02/02/17 11:30 11:40 pO2 VBG pH VBG pCO2 VBG HCO3 VBG Total CO2 VBG O2 Sat (Calc) VBG Base Excess VBG Potassium Sodium Chloride Glucose Lactate FiO2 Potassium Carbon Dioxide Anion Gap BUN Creatinine Est GFR ( Amer) Est GFR (Non-Af Amer) POC Glucose (mg/dL) 292 H Random Glucose Hemoglobin A1c Serum Osmolality Calcium Phosphorus Magnesium Iron 80 TIBC 227 L % Saturation 35 Direct Bilirubin Triglycerides Cholesterol LDL Cholesterol Direct HDL Cholesterol TSH 3rd Generation Prolactin Venous Blood Potassium Urine Color Urine Appearance Urine pH Ur Specific [place] Urine Protein Urine Glucose (UA) Urine Ketones Urine Blood Urine Nitrate Urine Bilirubin Urine Urobilinogen Ur Leukocyte Esterase Urine RBC Urine WBC Ur Epithelial Cells Urine Bacteria Urine Osmolality Ur Random Sodium Urine Magnesium Salicylates < 1 L Acetaminophen Alcohol, Quantitative Hepatitis A IgM Ab Hep Bs Antigen Hep B Core IgM Ab Hepatitis C Antibody Assessment & Plan - Assessment and Plan (Free Text) Assessment: 56 yo female with electrolyte abnormalities, hypotension, borderline leukopenia. On IV Vancomycin and Zosyn. Olivo cultures. Supportive care. Hypotension has resolved. Case discussed with MICU Thank you for allowing me to participate in the care of the patient, we will follow with you.
--- NOTE | 2017-02-02 15:23 | US ---
HISTORY: transaminitis COMPARISON: None. TECHNIQUE: Grayscale imaging was performed. FINDINGS: LIVER: Measures 19.1 cm. There is diffuse increased echogenicity of the liver parenchyma. No mass. No intrahepatic bile duct dilatation. GALLBLADDER: Surgically absent. COMMON BILE DUCT: Measures 4.7 mm. No stones. No dilatation. PANCREAS: Unremarkable as visualized. No mass. No ductal dilatation. RIGHT KIDNEY: Measures 12.1cm. Normal echogenicity. No calculus, mass, or hydronephrosis. LEFT KIDNEY: Measures 12.1cm. Normal echogenicity. No calculus, mass, or hydronephrosis. SPLEEN: Normal in size and contour. No mass. AORTA: No aneurysmal dilatation. IVC: Unremarkable. OTHER FINDINGS: None. IMPRESSION: Mild hepatomegaly. Diffuse increased echogenicity in the liver may reflect hepatic steatosis however parenchymal infectious/ inflammatory etiologies cannot be entirely excluded. Clinical and laboratory correlation is advised.
[2017-02-02 15:38] LABS: BLOOD UREA NITROGEN 8 mg/dL (7-21); CALCIUM 7.5 mg/dL (8.4-10.5); CARBON DIOXIDE 26 mmol/L (21-33); CHLORIDE 82 mmol/L (98-107); GFR AFRICAN-AMERICAN > 60; GLUCOSE,RANDOM 200 mg/dL (70-110); PHOSPHOROUS 2.7 mg/dL (2.5-4.5); POTASSIUM 3.4 mmol/L (3.6-5.0)
[2017-02-02 15:40] LABS: SODIUM 117 mmol/L (132-148)
[2017-02-02] MEDS ORDERED: Potassium Chloride 20 mEq ER Tab PO ONE (16:05)
[2017-02-02] MEDS: Insulin Lispro (humaLOG) LOW Coverage SC SCH ×2 (16:41→22:25)
[2017-02-02 16:49] LABS: TRANSFERRIN 172.03 mg/dL (206-381)
[2017-02-02 16:50] LABS: IMMUNOGLOBULIN G 860.7 mg/dL (700.0-1600.0)
[2017-02-02 16:51] LABS: IMMUNOGLOBULIN A 280.4 mg/dL (70.0-400.0); IMMUNOGLOBULIN M 93.9 mg/dL (40.0-230.0)
[2017-02-02 18:27] LABS: BLOOD UREA NITROGEN 8 mg/dL (7-21); CARBON DIOXIDE 29 mmol/L (21-33); GFR AFRICAN-AMERICAN > 60; GLUCOSE,RANDOM 113 mg/dL (70-110); POTASSIUM 3.3 mmol/L (3.6-5.0)
[2017-02-02 18:30] LABS: CHLORIDE 80 mmol/L (98-107)
[2017-02-02 18:31] LABS: SODIUM 118 mmol/L (132-148)
[2017-02-02 21:40] LABS: BLOOD UREA NITROGEN 8 mg/dL (7-21); CALCIUM 8.1 mg/dL (8.4-10.5); CARBON DIOXIDE 31 mmol/L (21-33); GFR AFRICAN-AMERICAN > 60; GLUCOSE,RANDOM 120 mg/dL (70-110); POTASSIUM 3.1 mmol/L (3.6-5.0)
[2017-02-02 21:44] LABS: CHLORIDE 78 mmol/L (95-110); SODIUM 115 mmol/L (132-148)
[2017-02-02] MEDS ORDERED: Sodium Chloride 0.9% 1,000 ML IV SCH (23:15)
--- NOTE | 2017-02-03 01:10 | CON ---
NEPHROLOGY CONSULTATION DATE: HISTORY OF PRESENT ILLNESS: A 56-year-old female with past medical history of hypertension and diabetes (since last few years), presented with generalized weakness and difficulty ambulating for the last three days. The patient found to have severe hyponatremia and nephrology has been consulted for the same. The patient report having diarrhea for the past three days, few times a day, not very watery; also with several episodes of vomiting; the patient reports continuing to drink about 10 large glasses of water per day; she reports difficulty ambulating due to weakness; also reports the sensation of dizziness with sensation of her surroundings moving; the patient otherwise reports urinating as usual, getting up about 3 to 4 times per night; denies any dysuria; MEET. The patient was given normal saline boluses and received 2500 mL IV fluids with sodium increasing from 113 early this morning to 123 approximately 4 hours later. PAST MEDICAL HISTORY: As above. FAMILY HISTORY: Diabetes. SOCIAL HISTORY: Denies ever using cigarettes. REVIEW OF SYSTEMS: GENERAL: Lethargy as mentioned in HPI. HEENT: Denies any sore throat or runny nose. RESPIRATORY: Denies any difficulty breathing. CARDIOVASCULAR: Denies any chest pain. GASTROINTESTINAL: As per HPI. GENITOURINARY: As per HPI. PSYCHIATRIC: Occasional depression. NEURO: Possible vertigo. PHYSICAL EXAMINATION: VITAL SIGNS: This morning, blood pressure 139/80, heart rate 96, respirations 18, temperature 98.2, O2 saturation 99% on room air. GENERAL: No distress. Conversing coherently in full sentences. HEENT: Moist mucous membranes, nonicteric. RESPIRATORY: Lungs clear to auscultation bilaterally. No rales, no rhonchi, no wheezes. HEART: S1, S2 normal. No murmurs. No gallops or rubs. GASTROINTESTINAL: Abdomen, soft, nontender, nondistended. GENITOURINARY: No bladder distension. PSYCHIATRIC: Normal mood, normal affect. SKIN: Warm, no cyanosis. EXTREMITIES: No leg edema with capillary refill. NEURO: Alert and oriented. LABORATORY DATA: On presentation, CBC, WBC 4.0, hemoglobin 13.2, hematocrit 38.2, platelets 96. Chemistry panel on presentation, sodium 113, potassium 2.4, chloride 70, bicarbonate 24, BUN 13, creatinine 0.8, glucose 267, calcium 8.0, phosphorus 2.2, magnesium 0.8, T-bili 2.1, AST 264, ALT 260, CK 238. Hemoglobin A1c 6.8. TSH 1.18. Urine studies this morning urine osmolality 186, urine sodium 61. ASSESSMENT AND PLAN: 1. Hypernatremia, severe. History consistent with volume depletion with rapid correction of serum sodium upon volume repletion; the patient's history indicates relatively chronic onset of hyponatremia (which we will define as occurring over a time period of greater than 48 hours). Therefore, acute rise in serum sodium upon volume repletion needs to be reversed acutely; the patient was given desmopressin 4 mcg IV piggyback and placed on D5W at 500 mL an hour for 4 hours. Goal of serum sodium should be no more than 6 to 8 over 24-hour period; therefore, we will aim for serum sodium of approximately 117 by this afternoon. 2. Hypokalemia in the setting of hypomagnesemia likely due to GI losses; unclear if the patient was on any diuretics; potassium replenished along with magnesium. Continue to monitor. 3. Metabolic acidosis, seen on presentation with trace ketones noted on urinalysis, likely in the setting of decreased p.o. intake, corrected with volume repletion. 4. Systemic inflammatory response syndrome/sepsis. The patient reporting high blood sugar readings lately in the 200s or as previously her sugars were relatively well controlled as is indicated by her hemoglobin A1c of 6.8%; the patient currently on vancomycin and Zosyn, follow up blood and urine cultures. 5. Hypertension. Blood pressure currently controlled; although, was hypotensive on presentation; agree with holding blood pressure medication for now. Critical care time spent assessing patient and following up with her progress greater than 35 minutes. Nakul Mccallum MD
--- NOTE | 2017-02-03 01:35 | CARD ---
APPROVED REPORT EKG Measurement Heart [id number] <Conclusion> Sinus tachycardia Nonspecific ST abnormality Abnormal ECG
[2017-02-03 02:03] LABS: BLOOD UREA NITROGEN 7 mg/dL (7-21); CALCIUM 7.7 mg/dL (8.4-10.5); CARBON DIOXIDE 28 mmol/L (21-33); CHLORIDE 78 mmol/L (98-107); GFR AFRICAN-AMERICAN > 60; GLUCOSE,RANDOM 111 mg/dL (70-110)
[2017-02-03 02:17] LABS: POTASSIUM 2.9 mmol/L (3.6-5.0); SODIUM 114 mmol/L (132-148)
[2017-02-03] MEDS ORDERED: Potassium Chloride 40 mEq/30 ml LIQ UD PO ONE (02:32)
[2017-02-03] MEDS ORDERED: Sodium Chloride 0.9% 1,000 ML IV SCH ×2 (02:57→07:45)
[2017-02-03 06:22] LABS: BLOOD UREA NITROGEN 6 mg/dL (7-21); CALCIUM 7.8 mg/dL (8.4-10.5); CARBON DIOXIDE 26 mmol/L (21-33); CHLORIDE 80 mmol/L (98-107); GFR AFRICAN-AMERICAN > 60; GLUCOSE,RANDOM 141 mg/dL (70-110); MAGNESIUM 1.4 mg/dL (1.7-2.2); PHOSPHOROUS 2.8 mg/dL (2.5-4.5); POTASSIUM 3.7 mmol/L (3.6-5.0)
[2017-02-03 06:44] LABS: SODIUM 113 mmol/L (132-148)
[2017-02-03] MEDS: Pantoprazole 40 mg EC Tab PO SCH (06:49)
[2017-02-03] MEDS ORDERED: Magnesium Sulfate 2 GM in Sodium Chloride 0.9% 100 ML IVPB ONE (08:16)
[2017-02-03] MEDS ORDERED: Insulin Regular 1 UNITS/0.01 ML ML SC ONE (08:33)
--- NOTE | 2017-02-03 08:50 | CP.PCM.PN ---
Subjective - Date & Time of Evaluation Date of Evaluation: 02/03/17 Time of Evaluation: 08:45 - Subjective Subjective: Patient seen and examined, resting in bed comfortably. No acute events overnight. She endorses being very nervous about her medical condition but denies abdominal pain, nausea, vomiting, fever/chills. She had a normal bowel movement yesterday and completed her breakfast tray in entirety this morning. Review of vitals from today shows elevated BP. 12 point review of systems performed, negative aside from mentioned above. Objective - Vital Signs/Intake and Output Vital Signs (last 24 hours): Temp Pulse Resp BP Pulse Ox 98.1 F 67 27 H 162/91 H 96 02/03/17 06:00 02/03/17 06:40 02/03/17 06:40 02/03/17 06:00 02/03/17 06:40 Intake and Output: 02/03/17 02/03/17 06:59 18:59 Intake Total 4500 Output Total 4100 Balance 400 - Medications Medications: Current Medications Heparin Sodium (Porcine) (Heparin) 5,000 units SC Q12 [facility] PRN Reason: Protocol Last Admin: 02/02/17 22:23 Dose: 5,000 units Vancomycin HCl (Vancomycin 1gm) 1 gm in 250 mls @ 167 mls/hr IVPB Q12H [facility] PRN Reason: Protocol Last Admin: 02/02/17 22:23 Dose: 167 mls/hr Sodium Chloride (Sodium Chloride 0.9%) 1,000 mls @ 75 mls/hr IV .[id number] [facility] Last Admin: 02/03/17 08:45 Dose: 75 mls/hr Magnesium Sulfate 2 gm/ Sodium (Chloride) 104 mls @ 102 mls/hr IVPB ONCE ONE Stop: 02/03/17 09:17 Insulin Human Regular (Humulin R Med) 0 units SC ACHS [facility] PRN Reason: Protocol Lorazepam (Ativan) 1 mg PO TID PRN; Protocol PRN Reason: Anxiety Metoprolol Tartrate (Lopressor) 25 mg PO BRKDIN [facility] Pantoprazole Sodium (Protonix Ec Tab) 40 mg PO 0600 [facility] Last Admin: 02/03/17 06:49 Dose: 40 mg - Labs Labs: 02/03/17 05:00 PT 11.9 Seconds (9.9-11.8) H 02/02/17 03:05 INR 1.10 (0.93-1.08) H 02/02/17 03:05 APTT 24.3 Seconds (23.7-30.8) 02/02/17 03:05 - Constitutional Appears: Non-toxic, No Acute Distress - Head Exam Head Exam: NORMAL INSPECTION - Eye Exam Eye Exam: EOMI, Normal appearance - ENT Exam ENT Exam: Mucous Membranes Moist - Respiratory Exam Respiratory Exam: Clear to Ausculation Bilateral - Cardiovascular Exam Cardiovascular Exam: REGULAR RHYTHM, +S1, +S2 - GI/Abdominal Exam GI & Abdominal Exam: Soft, Normal Bowel Sounds Additional comments: non tender to palpation in four quadrants - Extremities Exam Extremities Exam: Normal Inspection - Skin Skin Exam: Dry, Intact, Normal Color, Warm Assessment and Plan - Assessment and Plan (Free Text) Assessment: DM HTN Sepsis, electrolyte disturbance Transaminitis - viral hepatitis panel negative Abdominal US reviewed by me showing no gross abnormalities Plan: - Diet as tolerated - Hyponatremia workup and management as per medical team - Continue with antibiotic therapy as per ID, follow up blood cultures - Awaiting repeat LFTs and autoimmune panel results - Will continue to monitor patient clinical course
[2017-02-03 09:10] LABS: CHLORIDE URINE 70 mmol/L (32-290)
[2017-02-03 09:39] LABS: ALB/GLOB RATIO 1.4 (1.1-1.8); BILIRUBIN,DIRECT 0.7 mg/dL (0.0-0.4); BILIRUBIN,TOTAL 1.4 mg/dL (0.2-1.3); TOTAL PROTEIN 5.8 g/dL (5.8-8.3)
[2017-02-03 09:57] LABS: BLOOD UREA NITROGEN 6 mg/dL (7-21); CALCIUM 7.8 mg/dL (8.4-10.5); CARBON DIOXIDE 23 mmol/L (21-33); CHLORIDE 80 mmol/L (98-107); GFR AFRICAN-AMERICAN > 60; GLUCOSE,RANDOM 141 mg/dL (70-110); POTASSIUM 3.8 mmol/L (3.6-5.0)
[2017-02-03 09:58] LABS: SODIUM 112 mmol/L (132-148)
[2017-02-03] MEDS ORDERED: Sodium Chloride 3% 500 ML IV SCH (10:00)
[2017-02-03] MEDS: Vancomycin 1gm in NS 250ml 1 GM/250 ML BAG IVPB SCH ×3 (11:59→23:27)
[2017-02-03] MEDS: Insulin Reg-MEDIUM-Coverage SC SCH ×3 (12:11→21:54)
[2017-02-03 12:43] LABS: ALB/GLOB RATIO 1.4 (1.1-1.8); ALKALINE PHOSPHATASE 152 U/L (38-126); ALT/SGPT 206 U/L (7-56); AST/SGOT 185 U/L (14-36); BILIRUBIN,TOTAL 1.3 mg/dL (0.2-1.3); BLOOD UREA NITROGEN 5 mg/dL (7-21); CALCIUM 7.7 mg/dL (8.4-10.5); CARBON DIOXIDE 22 mmol/L (21-33); CHLORIDE 78 mmol/L (98-107); GFR AFRICAN-AMERICAN > 60; GLUCOSE,RANDOM 229 mg/dL (70-110); POTASSIUM 3.1 mmol/L (3.6-5.0)
[2017-02-03 12:56] LABS: SODIUM 113 mmol/L (132-148)
[2017-02-03] MEDS ORDERED: Potassium Chloride 20 mEq ER Tab PO STA (13:10)
--- NOTE | 2017-02-03 15:47 | CP.PCM.PN ---
<Thuy Olsen - Last Filed: 02/03/17 19:20> Subjective - Date & Time of Evaluation Date of Evaluation: 02/03/17 Time of Evaluation: 15:44 - Subjective Subjective: Thuy Olsen DO, PGY-1, Hospitalist Service Patient seen and examined at bedside. Patient states she feels jittery and anxious. Objective - Vital Signs/Intake and Output Vital Signs (last 24 hours): Temp Pulse Resp BP Pulse Ox 98.1 F 70 41 H 93/53 L 96 02/03/17 06:00 02/03/17 14:42 02/03/17 14:39 02/03/17 14:41 02/03/17 06:40 Intake and Output: 02/03/17 02/03/17 06:59 18:59 Intake Total 4500 Output Total 4100 Balance 400 - Medications Medications: Current Medications Heparin Sodium (Porcine) (Heparin) 5,000 units SC Q12 [facility] PRN Reason: Protocol Last Admin: 02/03/17 09:22 Dose: 5,000 units Vancomycin HCl (Vancomycin 1gm) 1 gm in 250 mls @ 167 mls/hr IVPB Q12H [facility] PRN Reason: Protocol Last Admin: 02/03/17 11:59 Dose: 167 mls/hr Sodium Chloride (Sodium Chloride 0.9%) 1,000 mls @ 75 mls/hr IV .[id number] [facility] Last Admin: 02/03/17 08:45 Dose: 75 mls/hr Sodium Chloride (Hypertonic Saline 3%) 500 mls @ 20 mls/hr IV .Q24H [facility] Last Admin: 02/03/17 10:19 Dose: 20 mls/hr Insulin Human Regular (Humulin R Med) 0 units SC ACHS [facility] PRN Reason: Protocol Last Admin: 02/03/17 12:11 Dose: 7 units Lorazepam (Ativan) 1 mg PO TID PRN; Protocol PRN Reason: Anxiety Last Admin: 02/03/17 09:22 Dose: 1 mg Metoprolol Tartrate (Lopressor) 25 mg PO BRKDIN [facility] Pantoprazole Sodium (Protonix Ec Tab) 40 mg PO 0600 [facility] Last Admin: 02/03/17 06:49 Dose: 40 mg - Labs Labs: 02/03/17 12:10 PT 11.9 Seconds (9.9-11.8) H 02/02/17 03:05 INR 1.10 (0.93-1.08) H 02/02/17 03:05 APTT 24.3 Seconds (23.7-30.8) 02/02/17 03:05 - Head Exam Additional comments: - Constitutional Appears: Non-toxic, No Acute Distress - Head Exam Head Exam: ATRAUMATIC, NORMAL INSPECTION, NORMOCEPHALIC - Eye Exam Eye Exam: EOMI, PERRL - Neck Exam Neck exam: Negative for: Lymphadenopathy, Tenderness, Thyromegaly - Respiratory Exam Respiratory Exam: Clear to Auscultation Bilateral, NORMAL BREATHING PATTERN - Cardiovascular Exam Cardiovascular Exam: REGULAR RHYTHM, +S1, +S2. absent: Systolic Murmur - GI/Abdominal Exam GI & Abdominal Exam: Normal Bowel Sounds. absent: Tenderness - Extremities Exam Extremities exam: Positive for: normal inspection - Back Exam Back exam: absent: CVA tenderness (L), CVA tenderness (R) - Neurological Exam Neurological exam: Alert, CN II-XII Intact, Oriented x3 - Psychiatric Exam Psychiatric exam: Anxious - Skin Skin Exam: Normal Color Assessment and Plan - Assessment and Plan (Free Text) Assessment: 1) Primary problem: subacute, severe hyponatremia, likely due to diarrheal illness and excessive water intake - Nephrology is on the case, , agree with his recommendation and management - Defer all treatment in relation to this to Nephrology. -Patient getting serial BMP q4h to monitor Na. - Consider less aggresive K replacement in order to prevent rapid correction of serum Na. 2) Possible infection - Olivo-cultures, blood, urine, and sputum - Continue with broad spectrum antibiotics 3) ICU agitation or early signs of ODS - Ativan 1 mg TID as supportive care - Consider neurology consult if symptoms persist. 4) DVT/GI prophylaxis: SCD rather than Heparin, Famotidine rather than Protonix <Rangasamy,Ajantha - Last Filed: 02/04/17 10:37> Objective - Vital Signs/Intake and Output Vital Signs (last 24 hours): Temp Pulse Resp BP Pulse Ox 98.1 F 65 19 124/68 99 02/04/17 05:47 02/04/17 08:40 02/04/17 08:40 02/04/17 08:01 02/04/17 08:40 Intake and Output: 02/04/17 02/04/17 06:59 18:59 Intake Total 4825 Output Total 4800 Balance 25 - Medications Medications: Current Medications Heparin Sodium (Porcine) (Heparin) 5,000 units SC Q12 [facility] PRN Reason: Protocol Last Admin: 02/04/17 09:26 Dose: 5,000 units Insulin Human Regular (Humulin R Med) 0 units SC ACHS [facility] PRN Reason: Protocol Last Admin: 02/04/17 07:39 Dose: Not Given Lorazepam (Ativan) 1 mg PO TID PRN; Protocol PRN Reason: Anxiety Last Admin: 02/03/17 19:29 Dose: 1 mg Metoprolol Tartrate (Lopressor) 25 mg PO BRKDIN [facility] Last Admin: 02/04/17 07:35 Dose: Not Given Pantoprazole Sodium (Protonix Ec Tab) 40 mg PO 0600 [facility] Last Admin: 02/04/17 07:09 Dose: 40 mg - Labs Labs: 02/04/17 05:00 02/04/17 08:29 PT 11.9 Seconds (9.9-11.8) H 02/02/17 03:05 INR 1.10 (0.93-1.08) H 02/02/17 03:05 APTT 24.3 Seconds (23.7-30.8) 02/02/17 03:05 Attending/Attestation - Attestation I have personally seen and examined this patient.: Yes I have fully participated in the care of the patient.: Yes I have reviewed all pertinent clinical information, including history, physical exam and plan: Yes Notes (Text): 02/04/17 10:31 attending note; Patient seen and examined with resident in ICU. Patient is a 56-year- [place] female with a past medical history of hypertension , diabetes is admitted with diarrhea for the past few days. Patient also had uncontrolled blood sugar at home. The patient was only drinking water to compensate for GI loss. the patient was found to be severely hyponatremic,hypokalemic and hypomagnesemic. Continue electrolyte supplementation. lactic acidosis;mostly secondary to hypotension. No evidence of sepsis. currently patient is afebrile and nontoxic. blood culture, urine culture negative. Anti-biotics discontinued. Elevated LFTs; mostly secondary to hypotension. Hepatitis profile negative. Autoimmune workup pending. GI evaluation appreated. LFT is improving. Patient Takes herbal medications from [facility].advised to stop and monitor liver function. Anxiety; continue Ativan when necessary. Denies alcohol abuse. upon discharge the patient will follow-up with PMD Dr. Alicea or [facility] [place] [facility] clinic.
[2017-02-03 16:00] LABS: BLOOD UREA NITROGEN 5 mg/dL (7-21); CARBON DIOXIDE 25 mmol/L (21-33); CHLORIDE 85 mmol/L (98-107); GFR AFRICAN-AMERICAN > 60; GLUCOSE,RANDOM 183 mg/dL (70-110); POTASSIUM 3.3 mmol/L (3.6-5.0); SODIUM 120 mmol/L (132-148)
[2017-02-03] MEDS ORDERED: Potassium Chloride 20 mEq ER Tab PO ONE (16:44)
--- NOTE | 2017-02-03 18:00 | PN ---
NEPHROLOGY CONSULTATION SUBJECTIVE: A 56-year-old female with past medical history of hypertension and diabetes, presented with generalized weakness and difficulty ambulating, admitted for severe hyponatremia, nephrology being consulted for the same. The patient reports feeling well, tolerating diet well. Denies any more lethargy. PHYSICAL EXAMINATION: VITAL SIGNS: This morning, blood pressure 106/44, heart rate 75, respirations 21, temperature 98.1. O2 sat 96% on room air. GENERAL: No distress, conversing coherently in full sentences. HEENT: Moist mucous membranes. Nonicteric. RESPIRATORY: Lungs clear to auscultation bilaterally. No rales. No rhonchi. No wheezes. HEART: S1 and S2 normal. No murmurs. No gallops. No rubs. ABDOMEN: Soft, nontender, nondistended. EXTREMITIES: No leg edema. SKIN: Warm. No cyanosis. PSYCHIATRIC: Normal mood, normal affect. LABORATORY DATA: This morning, chemistry panel; sodium 113, potassium 3.7, chloride 80, bicarb 26, BUN 6, creatinine 0.5, glucose 141, calcium 7.8, phosphorous 2.8, magnesium 1.4, albumin 3.4. ASSESSMENT AND PLAN: 1. Severe hyponatremia secondary to volume depletion and excess free water intake; after rapid correction of serum sodium, serum sodium was urgently lowered yesterday using free water and desmopressin, sodium has continued to trend downward likely due to the residual effect of desmopressin that was given by us; therefore, we will start hypertonic saline 3% at 20 mL an hour and repeat BMP q. 4 hours. Goal is to raise serum sodium to 118 by this evening. Checking repeat urine osm; if urine osm is high, this indicates that desmopressin is still active. Otherwise, if urine osm is close to 100, then this is consistent with the normal physiologic response and so, we will expect serum sodium to again rapidly increase and so, we would discontinue hypertonic saline if urine osm is appropriately low. 2. Hypokalemia. Continue to replenish as needed as this will also help to correct the hyponatremia. 3. Systemic inflammatory response syndrome. The patient is still on vancomycin 1 g q. 12 hours, due for fourth dose this evening, need to check vanco trough before then. 4. Hypertension. Blood pressure currently controlled, currently only on metoprolol 25 mg twice daily, continue the same. Critical care time assessing patient and making multiple adjustments > 35 minutes; Nakul Mccallum MD [facility]
--- NOTE | 2017-02-03 18:18 | CP.PCM.PN ---
Subjective - Date & Time of Evaluation Date of Evaluation: 02/03/17 Time of Evaluation: 17:00 - Subjective Subjective: Infectious Disease Follow Up: February 03, 2017 56 yo female with presentation of SOB and generalized weakness. The patient states she had multiple episodes of diarrhea. The patient was found with highly altered electrolytes. The patient does not have complaints now. Initially had hypotension and tachycardia. The patient has had resolvement of most of her electrolyte abnormalities. The patient has morbid obesity. Continued hyponatremia. Chronic in nature? Peripheral vascular disease with signs of elephantiasis. Objective - Vital Signs/Intake and Output Vital Signs (last 24 hours): Temp Pulse Resp BP Pulse Ox 98.1 F 81 41 H 113/81 96 02/03/17 06:00 02/03/17 17:19 02/03/17 14:39 02/03/17 17:19 02/03/17 06:40 Intake and Output: 02/03/17 02/03/17 06:59 18:59 Intake Total 4500 Output Total 4100 Balance 400 - Medications Medications: Current Medications Heparin Sodium (Porcine) (Heparin) 5,000 units SC Q12 [facility] PRN Reason: Protocol Last Admin: 02/03/17 09:22 Dose: 5,000 units Vancomycin HCl (Vancomycin 1gm) 1 gm in 250 mls @ 167 mls/hr IVPB Q12H [facility] PRN Reason: Protocol Last Admin: 02/03/17 11:59 Dose: 167 mls/hr Dextrose (Dextrose 5% In Water 1000 Ml) 1,000 mls @ 200 mls/hr IV .Q5H [facility] Last Admin: 02/03/17 17:14 Dose: 200 mls/hr Insulin Human Regular (Humulin R Med) 0 units SC ACHS [facility] PRN Reason: Protocol Last Admin: 02/03/17 17:18 Dose: 1 units Lorazepam (Ativan) 1 mg PO TID PRN; Protocol PRN Reason: Anxiety Last Admin: 02/03/17 09:22 Dose: 1 mg Metoprolol Tartrate (Lopressor) 25 mg PO BRKDIN [facility] Last Admin: 02/03/17 17:19 Dose: 25 mg Pantoprazole Sodium (Protonix Ec Tab) 40 mg PO 0600 [facility] Last Admin: 02/03/17 06:49 Dose: 40 mg - Labs Labs: 02/03/17 15:35 PT 11.9 Seconds (9.9-11.8) H 02/02/17 03:05 INR 1.10 (0.93-1.08) H 02/02/17 03:05 APTT 24.3 Seconds (23.7-30.8) 02/02/17 03:05 - Constitutional Appears: Non-toxic, No Acute Distress, Chronically Ill - Head Exam Head Exam: ATRAUMATIC, NORMOCEPHALIC - Eye Exam Eye Exam: EOMI, PERRL Pupil Exam: NORMAL ACCOMODATION, PERRL - ENT Exam ENT Exam: Mucous Membranes Moist, Normal External Ear Exam, TM's Normal Bilaterally - Neck Exam Neck Exam: Full ROM, Normal Inspection - Respiratory Exam Respiratory Exam: Clear to Ausculation Bilateral, NORMAL BREATHING PATTERN. absent: Rales, Rhonchi, Wheezes - Cardiovascular Exam Cardiovascular Exam: REGULAR RHYTHM, RRR, +S1, +S2 - GI/Abdominal Exam GI & Abdominal Exam: Soft, Normal Bowel Sounds. absent: Distended, Tenderness - Extremities Exam Additional comments: +1 edema with signs of chronic venous stasis and peripheral vascular disease. Discoloration and duskiness of the lower legs bilaterally. Signs of elephantiasis. - Neurological Exam Neurological Exam: Alert, Awake, CN II-XII Intact, Oriented x3 - Psychiatric Exam Psychiatric exam: Normal Affect, Normal Mood - Skin Skin Exam: Intact, Normal Color Assessment and Plan - Assessment and Plan (Free Text) Assessment: 56 yo female with electrolyte abnormalities, hypotension, borderline leukopenia. On IV Vancomycin and Zosyn. Olivo cultures. Supportive care. Hypotension has resolved. Chronic venous stasis. Cultures negative at 24 hours. Peripheral vascular disease. Elephantiasis. Discoloration and duskiness to the lower extremities. Patient still with hyponatremia. Case discussed with MICU Thank you for allowing me to participate in the care of the patient, we will follow with you.
--- NOTE | 2017-02-03 19:51 | CP.PCM.PN ---
Subjective - Date & Time of Evaluation Date of Evaluation: 02/03/17 Time of Evaluation: 17:00 - Subjective Subjective: Infectious Disease Follow Up: February 03, 2017 56 yo female with presentation of SOB and generalized weakness. The patient states she had multiple episodes of diarrhea. The patient was found with highly altered electrolytes. The patient does not have complaints now. Initially had hypotension and tachycardia. The patient has had resolvement of most of her electrolyte abnormalities. The patient has morbid obesity. Continued hyponatremia. Chronic in nature? Objective - Vital Signs/Intake and Output Vital Signs (last 24 hours): Temp Pulse Resp BP Pulse Ox 98 F 75 22 128/69 96 02/03/17 16:53 02/03/17 19:32 02/03/17 18:51 02/03/17 19:32 02/03/17 06:40 Intake and Output: 02/03/17 02/04/17 18:59 06:59 Intake Total 1825 Output Total 1800 Balance 25 - Medications Medications: Current Medications Heparin Sodium (Porcine) (Heparin) 5,000 units SC Q12 [facility] PRN Reason: Protocol Last Admin: 02/03/17 09:22 Dose: 5,000 units Vancomycin HCl (Vancomycin 1gm) 1 gm in 250 mls @ 167 mls/hr IVPB Q12H [facility] PRN Reason: Protocol Last Admin: 02/03/17 11:59 Dose: 167 mls/hr Dextrose (Dextrose 5% In Water 1000 Ml) 1,000 mls @ 200 mls/hr IV .Q5H [facility] Last Admin: 02/03/17 17:14 Dose: 200 mls/hr Insulin Human Regular (Humulin R Med) 0 units SC ACHS [facility] PRN Reason: Protocol Last Admin: 02/03/17 17:18 Dose: 1 units Lorazepam (Ativan) 1 mg PO TID PRN; Protocol PRN Reason: Anxiety Last Admin: 02/03/17 19:29 Dose: 1 mg Metoprolol Tartrate (Lopressor) 25 mg PO BRKDIN [facility] Last Admin: 02/03/17 17:19 Dose: 25 mg Pantoprazole Sodium (Protonix Ec Tab) 40 mg PO 0600 [facility] Last Admin: 02/03/17 06:49 Dose: 40 mg - Labs Labs: 02/03/17 15:35 PT 11.9 Seconds (9.9-11.8) H 02/02/17 03:05 INR 1.10 (0.93-1.08) H 02/02/17 03:05 APTT 24.3 Seconds (23.7-30.8) 02/02/17 03:05 - Constitutional Appears: Non-toxic, No Acute Distress, Chronically Ill - Head Exam Head Exam: ATRAUMATIC, NORMOCEPHALIC - Eye Exam Eye Exam: EOMI, PERRL Pupil Exam: NORMAL ACCOMODATION, PERRL - ENT Exam ENT Exam: Mucous Membranes Moist, Normal External Ear Exam, TM's Normal Bilaterally - Neck Exam Neck Exam: Full ROM, Normal Inspection - Respiratory Exam Respiratory Exam: Clear to Ausculation Bilateral, NORMAL BREATHING PATTERN. absent: Rales, Rhonchi, Wheezes - Cardiovascular Exam Cardiovascular Exam: REGULAR RHYTHM, RRR, +S1, +S2 - GI/Abdominal Exam GI & Abdominal Exam: Soft, Normal Bowel Sounds. absent: Distended, Tenderness - Extremities Exam Extremities Exam: Full ROM, Normal Inspection - Neurological Exam Neurological Exam: Alert, Awake, CN II-XII Intact, Oriented x3 - Psychiatric Exam Psychiatric exam: Normal Affect, Normal Mood - Skin Skin Exam: Intact, Normal Color Assessment and Plan - Assessment and Plan (Free Text) Assessment: 56 yo female with electrolyte abnormalities, hypotension, borderline leukopenia. On IV Vancomycin and Zosyn. Olivo cultures. Supportive care. Hypotension has resolved. Chronic venous stasis. Cultures negative at 48 hours. Patient still with hyponatremia. Otherwise the patient is getting out of bed and has no major complaints. Case discussed with MICU Thank you for allowing me to participate in the care of the patient, we will follow with you.
[2017-02-03 20:44] LABS: BLOOD UREA NITROGEN 6 mg/dL (7-21); CALCIUM 7.9 mg/dL (8.4-10.5); CARBON DIOXIDE 25 mmol/L (21-33); CHLORIDE 88 mmol/L (98-107); GFR AFRICAN-AMERICAN > 60; GLUCOSE,RANDOM 249 mg/dL (70-110); SODIUM 121 mmol/L (132-148)
[2017-02-04 00:55] LABS: ALB/GLOB RATIO 1.4 (1.1-1.8); ALKALINE PHOSPHATASE 130 U/L (38-126); ALT/SGPT 185 U/L (7-56); AST/SGOT 142 U/L (14-36); BILIRUBIN,TOTAL 0.6 mg/dL (0.2-1.3); BLOOD UREA NITROGEN 7 mg/dL (7-21); CALCIUM 8.2 mg/dL (8.4-10.5); CARBON DIOXIDE 28 mmol/L (21-33); CHLORIDE 93 mmol/L (98-107); GFR AFRICAN-AMERICAN > 60; GLUCOSE,RANDOM 91 mg/dL (70-110); POTASSIUM 3.4 mmol/L (3.6-5.0); SODIUM 129 mmol/L (132-148); TOTAL PROTEIN 6.2 g/dL (5.8-8.3)
[2017-02-04 05:59] LABS: BASO # 0.01 K/mm3 (0.0-2.0); BASO % 0.3 % (0.0-3.0); EOS % 0.7 % (1.5-5.0); GRAN # 1.5 (1.4-6.5); GRAN % 51.8 % (50.0-68.0); HEMATOCRIT 33.9 % (36.0-48.0); LYMPH # 1.1 (1.2-3.4); LYMPH % 37.2 % (22.0-35.0); MEAN CORPUSCULAR HEMOGLOBIN 29.2 pg (25.0-35.0); MEAN CORPUSCULAR HGB CONC 33.9 g/dl (31.0-37.0); MEAN PLATELET VOLUME 10.5 fl (7.0-11.0); MONO # 0.3 (0.1-0.6); RED CELL DISTRIBUTION WIDTH 14.3 % (11.5-14.5)
[2017-02-04 06:01] LABS: ALB/GLOB RATIO 1.3 (1.1-1.8); ALKALINE PHOSPHATASE 108 U/L (38-126); ALT/SGPT 160 U/L (7-56); AST/SGOT 119 U/L (14-36); BILIRUBIN,TOTAL 0.6 mg/dL (0.2-1.3); BLOOD UREA NITROGEN 9 mg/dL (7-21); CARBON DIOXIDE 27 mmol/L (21-33); CHLORIDE 91 mmol/L (98-107); GFR AFRICAN-AMERICAN > 60; GLUCOSE,RANDOM 156 mg/dL (70-110); MAGNESIUM 1.9 mg/dL (1.7-2.2); PHOSPHOROUS 3.8 mg/dL (2.5-4.5); POTASSIUM 3.5 mmol/L (3.6-5.0); SODIUM 124 mmol/L (132-148); TOTAL PROTEIN 5.4 g/dL (5.8-8.3)
[2017-02-04 06:08] LABS: WHITE BLOOD COUNT 2.9 10^3/ul (4.5-11.0)
[2017-02-04] MEDS: Pantoprazole 40 mg EC Tab PO SCH (07:09)
[2017-02-04] MEDS: Insulin Reg-MEDIUM-Coverage SC SCH ×4 (07:39→22:50)
--- NOTE | 2017-02-04 08:07 | CP.PCM.PN ---
Subjective - Date & Time of Evaluation Date of Evaluation: 02/04/17 Time of Evaluation: 08:04 - Subjective Subjective: I have seen and examined patient. No acute events overnight, she is seen ambulating in room and appears quite comfortable. She denies abdominal pain, nausea, vomiting, diarrhea, fever/chills. Tolerating PO diet without difficulty. 12 point review of systems performed, negative aside from mentioned above. Objective - Vital Signs/Intake and Output Vital Signs (last 24 hours): Temp Pulse Resp BP Pulse Ox 98.1 F 55 L 14 121/69 100 02/04/17 05:47 02/04/17 06:00 02/04/17 06:00 02/04/17 06:00 02/04/17 06:00 Intake and Output: 02/04/17 02/04/17 06:59 18:59 Intake Total 4825 Output Total 4800 Balance 25 - Medications Medications: Current Medications Heparin Sodium (Porcine) (Heparin) 5,000 units SC Q12 [facility] PRN Reason: Protocol Last Admin: 02/03/17 21:02 Dose: 5,000 units Vancomycin HCl (Vancomycin 1gm) 1 gm in 250 mls @ 167 mls/hr IVPB Q12H [facility] PRN Reason: Protocol Last Admin: 02/03/17 23:27 Dose: Not Given Insulin Human Regular (Humulin R Med) 0 units SC ACHS [facility] PRN Reason: Protocol Last Admin: 02/04/17 07:39 Dose: Not Given Lorazepam (Ativan) 1 mg PO TID PRN; Protocol PRN Reason: Anxiety Last Admin: 02/03/17 19:29 Dose: 1 mg Metoprolol Tartrate (Lopressor) 25 mg PO BRKDIN [facility] Last Admin: 02/03/17 17:19 Dose: 25 mg Pantoprazole Sodium (Protonix Ec Tab) 40 mg PO 0600 [facility] Last Admin: 02/04/17 07:09 Dose: 40 mg - Labs Labs: 02/04/17 05:00 02/04/17 05:00 PT 11.9 Seconds (9.9-11.8) H 02/02/17 03:05 INR 1.10 (0.93-1.08) H 02/02/17 03:05 APTT 24.3 Seconds (23.7-30.8) 02/02/17 03:05 - Constitutional Appears: Non-toxic, No Acute Distress - Head Exam Head Exam: NORMAL INSPECTION - Eye Exam Eye Exam: EOMI, Normal appearance - ENT Exam ENT Exam: Mucous Membranes Moist - Respiratory Exam Respiratory Exam: Clear to Ausculation Bilateral - Cardiovascular Exam Cardiovascular Exam: REGULAR RHYTHM, +S1, +S2 - GI/Abdominal Exam GI & Abdominal Exam: Soft, Normal Bowel Sounds Additional comments: non tender to palpation in four quadrants - Extremities Exam Extremities Exam: Normal Inspection - Skin Skin Exam: Dry, Intact, Normal Color, Warm Assessment and Plan - Assessment and Plan (Free Text) Assessment: DM / HTN Sepsis, electrolyte disturbance Transaminitis Plan: - Diet as tolerated - LFTs continue to trend down, monitor and avoid hepatotoxic therapy - Awaiting results of autoimmune panel - Continue with antibiotic therapy as per ID - No further acute GI issues, will sign off case. Suggest additional outpatient follow up. Please reconsult as necessary, thank you.
[2017-02-04 08:51] LABS: BLOOD UREA NITROGEN 10 mg/dL (7-21); CALCIUM 8.2 mg/dL (8.4-10.5); CARBON DIOXIDE 25 mmol/L (21-33); CHLORIDE 91 mmol/L (98-107); GFR AFRICAN-AMERICAN > 60; GLUCOSE,RANDOM 156 mg/dL (70-110); POTASSIUM 4.9 mmol/L (3.6-5.0); SODIUM 122 mmol/L (132-148)
[2017-02-04] MEDS ORDERED: Sodium Chloride 0.9% 1,000 ML IV SCH (11:45)
[2017-02-04 12:40] LABS: BLOOD UREA NITROGEN 11 mg/dL (7-21); CALCIUM 8.1 mg/dL (8.4-10.5); CARBON DIOXIDE 27 mmol/L (21-33); CHLORIDE 91 mmol/L (98-107); GFR AFRICAN-AMERICAN > 60; GLUCOSE,RANDOM 140 mg/dL (70-110); POTASSIUM 4.5 mmol/L (3.6-5.0); SODIUM 123 mmol/L (132-148)
--- NOTE | 2017-02-04 13:08 | CP.PCM.PN ---
<Thuy Olsen - Last Filed: 02/04/17 13:19> Subjective - Date & Time of Evaluation Date of Evaluation: 02/04/17 Time of Evaluation: 13:05 - Subjective Subjective: Thuy Olsen DO, PGY-1, Hospitalist Service Patient seen and examined at bedside. Patient states she feels much better as compared to yesterday. We discussed all of the medical interventions with her and answered all of her questions. Patient denies any chest pain, dyspnea, nausea, vomiting, or diarrhea. Nurse reports no events overnight Objective - Vital Signs/Intake and Output Vital Signs (last 24 hours): Temp Pulse Resp BP Pulse Ox 98.1 F 65 19 124/68 99 02/04/17 05:47 02/04/17 08:40 02/04/17 08:40 02/04/17 08:01 02/04/17 08:40 Intake and Output: 02/04/17 02/04/17 06:59 18:59 Intake Total 4825 Output Total 4800 Balance 25 - Medications Medications: Current Medications Heparin Sodium (Porcine) (Heparin) 5,000 units SC Q12 [facility] PRN Reason: Protocol Last Admin: 02/04/17 09:26 Dose: 5,000 units Sodium Chloride (Sodium Chloride 0.9%) 1,000 mls @ 150 mls/hr IV .Q6H40M [facility] Stop: 02/04/17 18:24 Last Admin: 02/04/17 11:55 Dose: 150 mls/hr Insulin Human Regular (Humulin R Med) 0 units SC ACHS [facility] PRN Reason: Protocol Last Admin: 02/04/17 12:01 Dose: 1 units Lorazepam (Ativan) 1 mg PO TID PRN; Protocol PRN Reason: Anxiety Last Admin: 02/03/17 19:29 Dose: 1 mg Metoprolol Tartrate (Lopressor) 25 mg PO BRKDIN [facility] Last Admin: 02/04/17 07:35 Dose: Not Given Pantoprazole Sodium (Protonix Ec Tab) 40 mg PO 0600 [facility] Last Admin: 02/04/17 07:09 Dose: 40 mg - Labs Labs: 02/04/17 05:00 02/04/17 12:20 PT 11.9 Seconds (9.9-11.8) H 02/02/17 03:05 INR 1.10 (0.93-1.08) H 02/02/17 03:05 APTT 24.3 Seconds (23.7-30.8) 02/02/17 03:05 - Constitutional Appears: Well, No Acute Distress - Head Exam Head Exam: ATRAUMATIC, NORMAL INSPECTION - Eye Exam Eye Exam: EOMI, Normal appearance - ENT Exam ENT Exam: Mucous Membranes Moist, Normal Oropharynx - Neck Exam Neck Exam: Normal Inspection - Respiratory Exam Respiratory Exam: Clear to Ausculation Bilateral. absent: Rales - Cardiovascular Exam Cardiovascular Exam: RRR, +S1, +S2 - GI/Abdominal Exam GI & Abdominal Exam: Normal Bowel Sounds. absent: Tenderness - Extremities Exam Extremities Exam: Normal Capillary Refill, Normal Inspection. absent: Calf Tenderness - Back Exam Back Exam: NORMAL INSPECTION. absent: CVA tenderness (L), CVA tenderness (R) - Neurological Exam Neurological Exam: Alert, CN II-XII Intact, Oriented x3 - Psychiatric Exam Psychiatric exam: Normal Affect, Normal Mood - Skin Skin Exam: Dry, Intact, Normal Color, Warm Assessment and Plan - Assessment and Plan (Free Text) Assessment: 56 year old [place] female with a past medical history of hypertension and diabetes who presented to [facility] with diarrhea for the past few days, uncontrolled blood sugars at home, and excess water intake. She was found to have chronic, severe hyponatremia and other electrolyte disturbances warranting admission to the ICU for closer monitoring and treatment. Plan: 1) Chronic, severe hyponatremia, likely due to diarrheal illness and excessive water intake. - Nephrology is on the case, , agree with his recommendation and management. - Defer all treatment in relation to this to Nephrology. - Na is improving, patient showing no signs of ODS. -Patient getting serial BMP to monitor Na. - Hyponatremia work up pending, will follow up 2) No signs of infection - Lactic acid within normal limits; initial elevation was most likely due to hypotension; currently, no fever, leukocytosis, and cultures all negative - Discontinue Vancomycin 3) Elevated LFTs; resolved. - Viral hepatitis profile negative. - Autoimmune workup pending. - GI evaluation appreciated. 4) ICU agitation, resolved - Ativan 1 mg TID as supportive care 5) DVT/GI prophylaxis: Heparin 5,000 U q12h and Protonix 40 mg <Rangasamy,Ajantha - Last Filed: 02/04/17 15:50> Objective - Vital Signs/Intake and Output Vital Signs (last 24 hours): Temp Pulse Resp BP Pulse Ox 98.1 F 65 19 124/68 99 02/04/17 05:47 02/04/17 08:40 02/04/17 08:40 02/04/17 08:01 02/04/17 08:40 Intake and Output: 02/04/17 02/04/17 06:59 18:59 Intake Total 4825 Output Total 4800 Balance 25 - Medications Medications: Current Medications Heparin Sodium (Porcine) (Heparin) 5,000 units SC Q12 [facility] PRN Reason: Protocol Last Admin: 02/04/17 09:26 Dose: 5,000 units Sodium Chloride (Sodium Chloride 0.9%) 1,000 mls @ 150 mls/hr IV .Q6H40M [facility] Last Admin: 02/04/17 11:55 Dose: 150 mls/hr Sodium Chloride (Hypertonic Saline 3%) 500 mls @ 20 mls/hr IV .Q24H [facility] Last Admin: 02/04/17 13:38 Dose: 20 mls/hr Insulin Human Regular (Humulin R Med) 0 units SC ACHS [facility] PRN Reason: Protocol Last Admin: 02/04/17 12:01 Dose: 1 units Lorazepam (Ativan) 1 mg PO TID PRN; Protocol PRN Reason: Anxiety Last Admin: 02/03/17 19:29 Dose: 1 mg Metoprolol Tartrate (Lopressor) 25 mg PO BRKDIN [facility] Last Admin: 02/04/17 07:35 Dose: Not Given Pantoprazole Sodium (Protonix Ec Tab) 40 mg PO 0600 [facility] Last Admin: 02/04/17 07:09 Dose: 40 mg - Labs Labs: 02/04/17 05:00 02/04/17 12:20 PT 11.9 Seconds (9.9-11.8) H 02/02/17 03:05 INR 1.10 (0.93-1.08) H 02/02/17 03:05 APTT 24.3 Seconds (23.7-30.8) 02/02/17 03:05 Attending/Attestation - Attestation I have personally seen and examined this patient.: Yes I have fully participated in the care of the patient.: Yes I have reviewed all pertinent clinical information, including history, physical exam and plan: Yes Notes (Text): 02/04/17 15:48 attending note; Patient seen and examined with resident in ICU. Patient is a 56-year- [place] female with a past medical history of hypertension , diabetes is admitted with diarrhea for the past few days. Patient also had uncontrolled blood sugar at home. The patient was only drinking water to compensate for GI loss. the patient was found to be severely hyponatremic,hypokalemic and hypomagnesemic. Continue electrolyte supplementation. Follow-up with nephrology. lactic acidosis;mostly secondary to hypotension. resolved. No evidence of sepsis. currently patient is afebrile and nontoxic. blood culture, urine culture negative. Anti-biotics discontinued. Elevated LFTs; mostly secondary to hypotension. Hepatitis profile negative. Autoimmune workup pending. GI evaluation appreated. LFT is improving. Patient Takes herbal medications from [facility].advised to stop and monitor liver function. Anxiety; continue Ativan when necessary. Denies alcohol abuse. upon discharge the patient will follow-up with PMD Dr. Alicea or [facility] clinic.
[2017-02-04] MEDS ORDERED: Sodium Chloride 3% 500 ML IV SCH ×2 (13:15)
--- NOTE | 2017-02-04 13:53 | PN ---
DATE: 02/04/2017 SUBJECTIVE: The patient is resting in bed, awake and alert, no complaints of fever, chills, nausea, or vomiting. No abdominal pain or chest pain. No shortness of breath. Tolerating p.o. intake. PHYSICAL EXAMINATION: VITAL SIGNS: The patient's temperature is 98.1, pulse is 65, respirations 19, BP is 124/68. SKIN: Warm and dry. HEENT: Head: Atraumatic, normocephalic. Eyes: Reactive to light. Ears, nose and throat seem to be within normal limits. NECK: Supple. No JVD. No thyroid enlargement. No lymph nodes. HEART: Regular rate and rhythm. Normal S1 and S2. LUNGS: Reveal good breath sounds bilaterally. ABDOMEN: Soft, nontender. Normal bowel sounds. No organomegaly noted. GENITALIA/RECTAL: Deferred. MUSCULOSKELETAL: No joint deformities. EXTREMITIES: Reveal no significant edema. NEUROLOGICAL: She seems to be grossly intact. LABORATORY DATA: As far as her laboratories are concerned, her white is 2.9, hemoglobin is 11.5, hematocrit 33.9 with platelets of 88,000. The patient's sodium is 124, potassium 3.5, chloride 91, CO2 of 27 with a BUN of 9, creatinine of 0.4 and glucose of 126. IMPRESSION: As far as my impression, this patient has hyponatremia and history of hypertension as well as diabetes. PLAN: As far as our plan, we will continue with heparin subQ. The patient is getting Lopressor for her blood pressure and Protonix. She continues to be followed closely for her electrolytes as the sodium corrects and will be transferred to the floor as per the PMD. Clyde Pederson MD
[2017-02-04 17:01] LABS: BLOOD UREA NITROGEN 13 mg/dL (7-21); CALCIUM 8.3 mg/dL (8.4-10.5); CARBON DIOXIDE 27 mmol/L (21-33); CHLORIDE 91 mmol/L (98-107); GFR AFRICAN-AMERICAN > 60; GLUCOSE,RANDOM 175 mg/dL (70-110); POTASSIUM 4.2 mmol/L (3.6-5.0); SODIUM 125 mmol/L (132-148)
--- NOTE | 2017-02-04 19:48 | CP.PCM.PN ---
Subjective - Date & Time of Evaluation Date of Evaluation: 02/04/17 Time of Evaluation: 17:30 - Subjective Subjective: Infectious Disease Follow Up: February 04, 2017 56 yo female with presentation of SOB and generalized weakness. The patient states she had multiple episodes of diarrhea. The patient was found with highly altered electrolytes. The patient does not have complaints now. Initially had hypotension and tachycardia. The patient has had resolvement of most of her electrolyte abnormalities. The patient has obesity. Continued hyponatremia but improved. Chronic in nature? Case discussed with PMD. Antibiotics stopped today. Objective - Vital Signs/Intake and Output Vital Signs (last 24 hours): Temp Pulse Resp BP Pulse Ox 98.1 F 74 51 H 97/61 L 100 02/04/17 11:30 02/04/17 18:06 02/04/17 17:50 02/04/17 16:45 02/04/17 10:30 Intake and Output: 02/04/17 02/05/17 18:59 06:59 Intake Total 1420 Output Total 1000 Balance 420 - Medications Medications: Current Medications Heparin Sodium (Porcine) (Heparin) 5,000 units SC Q12 [facility] PRN Reason: Protocol Last Admin: 02/04/17 09:26 Dose: 5,000 units Sodium Chloride (Sodium Chloride 0.9%) 1,000 mls @ 150 mls/hr IV .Q6H40M [facility] Last Admin: 02/04/17 11:55 Dose: 150 mls/hr Sodium Chloride (Hypertonic Saline 3%) 500 mls @ 20 mls/hr IV .Q24H [facility] Last Admin: 02/04/17 13:38 Dose: 20 mls/hr Insulin Human Regular (Humulin R Med) 0 units SC ACHS [facility] PRN Reason: Protocol Last Admin: 02/04/17 16:48 Dose: 1 units Lorazepam (Ativan) 1 mg PO TID PRN; Protocol PRN Reason: Anxiety Last Admin: 02/03/17 19:29 Dose: 1 mg Metoprolol Tartrate (Lopressor) 25 mg PO BRKDIN [facility] Last Admin: 02/04/17 16:45 Dose: Not Given Pantoprazole Sodium (Protonix Ec Tab) 40 mg PO 0600 [facility] Last Admin: 02/04/17 07:09 Dose: 40 mg - Labs Labs: 02/04/17 05:00 02/04/17 16:30 PT 11.9 Seconds (9.9-11.8) H 02/02/17 03:05 INR 1.10 (0.93-1.08) H 02/02/17 03:05 APTT 24.3 Seconds (23.7-30.8) 02/02/17 03:05 - Constitutional Appears: Non-toxic, No Acute Distress, Chronically Ill - Head Exam Head Exam: ATRAUMATIC, NORMOCEPHALIC - Eye Exam Eye Exam: EOMI, PERRL Pupil Exam: NORMAL ACCOMODATION, PERRL - ENT Exam ENT Exam: Mucous Membranes Moist, Normal External Ear Exam, TM's Normal Bilaterally - Neck Exam Neck Exam: Full ROM, Normal Inspection - Respiratory Exam Respiratory Exam: Clear to Ausculation Bilateral, NORMAL BREATHING PATTERN. absent: Rales, Rhonchi, Wheezes - Cardiovascular Exam Cardiovascular Exam: REGULAR RHYTHM, RRR, +S1, +S2 - GI/Abdominal Exam GI & Abdominal Exam: Soft, Normal Bowel Sounds. absent: Distended, Tenderness - Extremities Exam Extremities Exam: Full ROM, Normal Inspection - Neurological Exam Neurological Exam: Alert, Awake, CN II-XII Intact, Oriented x3 - Psychiatric Exam Psychiatric exam: Normal Affect, Normal Mood - Skin Skin Exam: Intact, Normal Color Assessment and Plan - Assessment and Plan (Free Text) Assessment: 56 yo female with electrolyte abnormalities, hypotension, borderline leukopenia. On IV Vancomycin and Zosyn. Olivo cultures. Supportive care. Hypotension has resolved. Chronic venous stasis. Cultures negative at 48 hours. Patient still with hyponatremia but improved compared to admission. Otherwise the patient is getting out of bed and has no major complaints. Case discussed with PMD. Antibiotics stopped. Thank you for allowing me to participate in the care of the patient, we will follow with you.
[2017-02-04 20:53] LABS: BLOOD UREA NITROGEN 13 mg/dL (7-21); CALCIUM 8.1 mg/dL (8.4-10.5); CARBON DIOXIDE 26 mmol/L (21-33); CHLORIDE 92 mmol/L (98-107); GFR AFRICAN-AMERICAN > 60; GLUCOSE,RANDOM 166 mg/dL (70-110); POTASSIUM 4.1 mmol/L (3.6-5.0); SODIUM 126 mmol/L (132-148)
--- NOTE | 2017-02-04 22:31 | CP.PCM.PN ---
Subjective - Date & Time of Evaluation Date of Evaluation: 02/04/17 Time of Evaluation: 12:00 - Subjective Subjective: Patient reports lethargy is improved; tolerating diet well; Objective - Vital Signs/Intake and Output Vital Signs (last 24 hours): Temp Pulse Resp BP Pulse Ox 98.1 F 74 51 H 97/61 L 100 02/04/17 11:30 02/04/17 18:06 02/04/17 17:50 02/04/17 16:45 02/04/17 10:30 Intake and Output: 02/04/17 02/05/17 18:59 06:59 Intake Total 1420 Output Total 1000 Balance 420 - Medications Medications: Current Medications Heparin Sodium (Porcine) (Heparin) 5,000 units SC Q12 [facility] PRN Reason: Protocol Last Admin: 02/04/17 21:26 Dose: 5,000 units Sodium Chloride (Sodium Chloride 0.9%) 1,000 mls @ 150 mls/hr IV .Q6H40M [facility] Last Admin: 02/04/17 11:55 Dose: 150 mls/hr Sodium Chloride (Hypertonic Saline 3%) 500 mls @ 20 mls/hr IV .Q24H [facility] Last Admin: 02/04/17 13:38 Dose: 20 mls/hr Insulin Human Regular (Humulin R Med) 0 units SC ACHS [facility] PRN Reason: Protocol Last Admin: 02/04/17 16:48 Dose: 1 units Lorazepam (Ativan) 1 mg PO TID PRN; Protocol PRN Reason: Anxiety Last Admin: 02/03/17 19:29 Dose: 1 mg Metoprolol Tartrate (Lopressor) 25 mg PO BRKDIN [facility] Last Admin: 02/04/17 16:45 Dose: Not Given Pantoprazole Sodium (Protonix Ec Tab) 40 mg PO 0600 [facility] Last Admin: 02/04/17 07:09 Dose: 40 mg - Labs Labs: 02/04/17 05:00 02/04/17 20:15 PT 11.9 Seconds (9.9-11.8) H 02/02/17 03:05 INR 1.10 (0.93-1.08) H 02/02/17 03:05 APTT 24.3 Seconds (23.7-30.8) 02/02/17 03:05 - Constitutional Appears: Well, No Acute Distress - Head Exam Head Exam: NORMAL INSPECTION - Eye Exam Eye Exam: Normal appearance. absent: Scleral icterus - ENT Exam ENT Exam: Mucous Membranes Moist - Respiratory Exam Respiratory Exam: Clear to Ausculation Bilateral, NORMAL BREATHING PATTERN. absent: Rales, Rhonchi, Wheezes, Respiratory Distress - Cardiovascular Exam Cardiovascular Exam: REGULAR RHYTHM, +S1, +S2 - GI/Abdominal Exam GI & Abdominal Exam: Soft. absent: Distended, Tenderness - Extremities Exam Additional comments: no leg edema; - Neurological Exam Neurological Exam: Alert, Awake - Psychiatric Exam Psychiatric exam: Normal Affect, Normal Mood - Skin Skin Exam: Normal Color, Warm. absent: Cyanosis Assessment and Plan (1) Hyponatremia Assessment & Plan: Secondary to volume depletion; serum sodium again rising too fast yesterday and needing to be lowered urgently; high Ur osm this morning due to effect of desmopressin and therefore patient placed on hypertonic saline briefly; serum Na now rising slowly; will allow to self-correct; -continue q4h bmp Status: Acute (2) Hypertension Assessment & Plan: Patient with periods of low BP seen; no orthostatic changes on exam today; may still have an element of mild volume depletion but should correct with good PO intake; hold metoprolol for now; Status: Chronic - Assessment and Plan (Free Text) Assessment: Critical care time assessing patient, monitoring serum Na and making adjustments > 35 minutes;
[2017-02-05 01:12] LABS: BLOOD UREA NITROGEN 11 mg/dL (7-21); CALCIUM 8.3 mg/dL (8.4-10.5); CARBON DIOXIDE 28 mmol/L (21-33); CHLORIDE 93 mmol/L (98-107); GFR AFRICAN-AMERICAN > 60; GLUCOSE,RANDOM 164 mg/dL (70-110); SODIUM 128 mmol/L (132-148)
[2017-02-05 04:53] LABS: BLOOD UREA NITROGEN 11 mg/dL (7-21); CALCIUM 8.5 mg/dL (8.4-10.5); CARBON DIOXIDE 30 mmol/L (21-33); CHLORIDE 95 mmol/L (98-107); GFR AFRICAN-AMERICAN > 60; GLUCOSE,RANDOM 133 mg/dL (70-110); SODIUM 132 mmol/L (132-148)
[2017-02-05] MEDS: Pantoprazole 40 mg EC Tab PO SCH (06:03)
[2017-02-05] MEDS: Insulin Reg-MEDIUM-Coverage SC SCH ×4 (08:44→21:54)
--- NOTE | 2017-02-05 08:57 | PN ---
IVANNA NOTE DATE: 02/03/2017 SUBJECTIVE: The patient is awake and alert, sitting up in bed, no respiratory distress and no complaints of pain. The patient is eating breakfast. PHYSICAL EXAMINATION: VITAL SIGNS: Note that her temperature is 98.1, her pulse is 67, respirations are 18, and blood pressure is 162/91. SKIN: Warm and dry. HEENT: Head; atraumatic and normocephalic. Eyes; reactive to light. Ear, nose, and throat seem to be within normal limits. NECK: Supple. No JVD. No thyroid enlargement. No lymph nodes. HEART: Has a regular rate and rhythm. Normal S1 and S2. LUNGS: Reveal good breath sounds bilaterally. ABDOMEN: Soft, nontender. Normal bowel sounds. No organomegaly noted. GENITALIA AND RECTAL: Deferred. MUSCULOSKELETAL: No joint deformities. EXTREMITIES: Reveal trace lower extremity edema. NEUROLOGIC: She seems to be grossly intact. LABORATORY DATA: As far as her laboratories are concern her sodium this morning is 113, potassium 3.7, chloride 80, and CO2 of 26 with a BUN of 6, creatinine of 0.5, and a glucose of 171. IMPRESSION: This patient has hyponatremia with hypochloremia and presented with diarrhea as well as history of hypertension and diabetes. 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 PLAN: We will continue with Ativan p.r.n., and she is on insulin. Also, the patient is getting Protonix as well as normal saline IV. We are monitoring her laboratories and following her sodium closely. The patient is getting vancomycin as antibiotics. She is being followed by Renal and we will follow their guidance for the hyponatremia. We will continue to treat aggressively along with the other consultants and the primary care doctor. Clyde Pederson MD
[2017-02-05 11:16] LABS: BASO # 0.05 K/mm3 (0.0-2.0); BASO % 1.5 % (0.0-3.0); EOS % 0.3 % (1.5-5.0); GRAN # 1.87 (1.4-6.5); GRAN % 55.4 % (50.0-68.0); HEMATOCRIT 34.9 % (36.0-48.0); LYMPH % 29.4 % (22.0-35.0); MEAN CELL VOLUME 89.3 fl (80.0-105.0); MEAN CORPUSCULAR HEMOGLOBIN 29.9 pg (25.0-35.0); MEAN CORPUSCULAR HGB CONC 33.5 g/dl (31.0-37.0); MEAN PLATELET VOLUME 10.1 fl (7.0-11.0); MONO # 0.5 (0.1-0.6); MONO % 13.4 % (1.0-6.0); RED CELL DISTRIBUTION WIDTH 15.2 % (11.5-14.5); WHITE BLOOD COUNT 3.4 10^3/ul (4.5-11.0)
--- NOTE | 2017-02-05 11:17 | CP.PCM.PN ---
<Santo Rg - Last Filed: 02/05/17 12:49> Subjective - Date & Time of Evaluation Date of Evaluation: 02/05/17 Time of Evaluation: 09:55 - Subjective Subjective: Patient seen and examined at bedside. No acute overnight events. Patient resting comfortably in bed. Offers no new complaints at this time. States that her generalized weakness has significantly improved since admission. Denies f/c/ p/sob/abdominal pain/n/v/diarrhea/constipation/urinary symptoms. Objective - Vital Signs/Intake and Output Vital Signs (last 24 hours): Temp Pulse Resp BP Pulse Ox 98.1 F 74 51 H 97/61 L 100 02/04/17 11:30 02/04/17 18:06 02/04/17 17:50 02/04/17 16:45 02/04/17 10:30 - Medications Medications: Current Medications Heparin Sodium (Porcine) (Heparin) 5,000 units SC Q12 [facility] PRN Reason: Protocol Last Admin: 02/05/17 09:10 Dose: 5,000 units Insulin Human Regular (Humulin R Med) 0 units SC ACHS [facility] PRN Reason: Protocol Last Admin: 02/05/17 08:44 Dose: 1 units Lorazepam (Ativan) 1 mg PO TID PRN; Protocol PRN Reason: Anxiety Last Admin: 02/05/17 00:16 Dose: 1 mg Metoprolol Tartrate (Lopressor) 25 mg PO BRKDIN [facility] Last Admin: 02/04/17 16:45 Dose: Not Given Pantoprazole Sodium (Protonix Ec Tab) 40 mg PO 0600 [facility] Last Admin: 02/05/17 06:03 Dose: 40 mg - Labs Labs: 02/04/17 05:00 02/05/17 04:15 PT 11.9 Seconds (9.9-11.8) H 02/02/17 03:05 INR 1.10 (0.93-1.08) H 02/02/17 03:05 APTT 24.3 Seconds (23.7-30.8) 02/02/17 03:05 - Additional Findings Additional findings: Constitutional Appears: Well, No Acute Distress - Head Exam Head Exam: ATRAUMATIC, NORMAL INSPECTION - Eye Exam Eye Exam: EOMI, Normal appearance - ENT Exam ENT Exam: Mucous Membranes Moist, Normal Oropharynx - Neck Exam Neck Exam: Normal Inspection - Respiratory Exam Respiratory Exam: Clear to Ausculation Bilateral. absent: Rales - Cardiovascular Exam Cardiovascular Exam: RRR, +S1, +S2 - GI/Abdominal Exam GI & Abdominal Exam: Normal Bowel Sounds. absent: Tenderness - Extremities Exam Extremities Exam: Normal Capillary Refill, Normal Inspection. absent: Calf Tenderness - Back Exam Back Exam: NORMAL INSPECTION. absent: CVA tenderness (L), CVA tenderness (R) - Neurological Exam Neurological Exam: Alert, CN II-XII Intact, Oriented x3 - Psychiatric Exam Psychiatric exam: Normal Affect, Normal Mood - Skin Skin Exam: Dry, Intact, Normal Color, Warm Assessment and Plan - Assessment and Plan (Free Text) Assessment: Assessment: 56 year old [place] female with a past medical history of hypertension and diabetes who presented to [facility] with diarrhea for the past few days, uncontrolled blood sugars at home, and excess water intake. She was found to have chronic, severe hyponatremia and other electrolyte disturbances warranting admission to the ICU for closer monitoring and treatment. Plan: Chronic, severe hyponatremia - sodium improved to 132 this AM, patient being moved to [facility] - details- likely due to diarrheal illness and excessive water intake. - Nephrology is on the case, , agree with his recommendation and management. - Defer all treatment in relation to this to Nephrology. - Patient showing no signs of ODS. Elevated LFTs - Monitor via daily CMP - Viral hepatitis profile negative. - Autoimmune workup pending. - GI evaluation appreciated- avoid hepatotoxic therapy ICU agitation - resolved - Ativan 1 mg TID as supportive care DVT/GI prophylaxis - Heparin 5,000 U q12h and Protonix 40 mg Case discussed with and plan approved by attending physician, Dr. Posada. <Fercho Posada - Last Filed: 02/06/17 16:55> Objective - Vital Signs/Intake and Output Vital Signs (last 24 hours): Temp Pulse Resp BP Pulse Ox 98.5 F 78 18 115/68 96 02/06/17 08:17 02/06/17 08:17 02/06/17 08:17 02/06/17 08:17 02/06/17 08:17 Intake and Output: 02/06/17 02/06/17 06:59 18:59 Intake Total 1020 560 Balance 1020 560 - Medications Medications: Current Medications Heparin Sodium (Porcine) (Heparin) 5,000 units SC Q12 [facility] PRN Reason: Protocol Last Admin: 02/06/17 11:10 Dose: 5,000 units Insulin Human Regular (Humulin R Med) 0 units SC ACHS [facility] Last Admin: 02/06/17 12:06 Dose: 1 units Lorazepam (Ativan) 1 mg PO TID PRN; Protocol PRN Reason: Anxiety Last Admin: 02/05/17 21:59 Dose: 1 mg Metoprolol Tartrate (Lopressor) 25 mg PO BRKDIN [facility] Last Admin: 02/04/17 16:45 Dose: Not Given Pantoprazole Sodium (Protonix Ec Tab) 40 mg PO 0600 [facility] Last Admin: 02/06/17 05:41 Dose: Not Given - Labs Labs: 02/06/17 07:21 02/06/17 07:21 PT 11.9 Seconds (9.9-11.8) H 02/02/17 03:05 INR 1.10 (0.93-1.08) H 02/02/17 03:05 APTT 24.3 Seconds (23.7-30.8) 02/02/17 03:05 Attending/Attestation - Attestation I have personally seen and examined this patient.: Yes I have fully participated in the care of the patient.: Yes I have reviewed all pertinent clinical information, including history, physical exam and plan: Yes Notes (Text): I have seen and examined the patient at bedside. Agree with the above note with the following additions/ exceptions: Briefly this is 56 year old [place] female with history of HTN and DM-2 who presented with diarrhea and found to have severe electrolyte abnormalities including hyponatremia most likely due to volume depletion. Sodium has improved today. She also has elevated LFT's probably due to an episode of hypotension. Hep panel is negative. Autoimmune work up ordered by GI and is pending. Upon discharge patient will follow up with Dr Salas. Dr Fercho Posada
[2017-02-05 11:22] LABS: DHEA SULFATE 51 mcg/dL (8-188)
--- NOTE | 2017-02-05 11:44 | CP.PCM.PN ---
Subjective - Date & Time of Evaluation Date of Evaluation: 02/05/17 Time of Evaluation: 07:30 - Subjective Subjective: CRITICAL CARE PROGRESS NOTE Patient seen and examined, reports no major complaints. Doing well. Off 3% saline Objective - Vital Signs/Intake and Output Vital Signs (last 24 hours): Temp Pulse Resp BP Pulse Ox 98.1 F 74 51 H 97/61 L 100 02/04/17 11:30 02/04/17 18:06 02/04/17 17:50 02/04/17 16:45 02/04/17 10:30 - Medications Medications: Current Medications Heparin Sodium (Porcine) (Heparin) 5,000 units SC Q12 [facility] PRN Reason: Protocol Last Admin: 02/05/17 09:10 Dose: 5,000 units Insulin Human Regular (Humulin R Med) 0 units SC ACHS [facility] PRN Reason: Protocol Last Admin: 02/05/17 08:44 Dose: 1 units Lorazepam (Ativan) 1 mg PO TID PRN; Protocol PRN Reason: Anxiety Last Admin: 02/05/17 00:16 Dose: 1 mg Metoprolol Tartrate (Lopressor) 25 mg PO BRKDIN [facility] Last Admin: 02/04/17 16:45 Dose: Not Given Pantoprazole Sodium (Protonix Ec Tab) 40 mg PO 0600 [facility] Last Admin: 02/05/17 06:03 Dose: 40 mg - Labs Labs: 02/05/17 11:10 02/05/17 04:15 PT 11.9 Seconds (9.9-11.8) H 02/02/17 03:05 INR 1.10 (0.93-1.08) H 02/02/17 03:05 APTT 24.3 Seconds (23.7-30.8) 02/02/17 03:05 - Constitutional Appears: Well, Non-toxic, No Acute Distress - Head Exam Head Exam: NORMAL INSPECTION - Eye Exam Eye Exam: EOMI - ENT Exam ENT Exam: Mucous Membranes Moist - Neck Exam Neck Exam: Full ROM - Respiratory Exam Respiratory Exam: Clear to Ausculation Bilateral, NORMAL BREATHING PATTERN - Cardiovascular Exam Cardiovascular Exam: REGULAR RHYTHM, +S1, +S2 - GI/Abdominal Exam GI & Abdominal Exam: Soft, Normal Bowel Sounds - Extremities Exam Extremities Exam: Normal Inspection Assessment and Plan - Assessment and Plan (Free Text) Assessment: 56yo female a/w severe hyponatremia Hyponatremia, resolved Dehydration, resolved Diarrhea, resolved - crreutnly afebrile, HD stable, comfortable, with no complaints - Na 132, off #% saline - Nephrology following Recommend: - DC all IVF - follow up renal - follow up cultures - OOB to chair - FS control - GI ppx - DVT ppx - transfer to floor
--- NOTE | 2017-02-05 21:39 | CP.PCM.PN ---
Objective - Vital Signs/Intake and Output Vital Signs (last 24 hours): Temp Pulse Resp BP Pulse Ox 98.4 F 96 H 20 121/18 L 97 02/05/17 16:00 02/05/17 16:00 02/05/17 16:00 02/05/17 16:00 02/05/17 16:00 - Medications Medications: Current Medications Heparin Sodium (Porcine) (Heparin) 5,000 units SC Q12 [facility] PRN Reason: Protocol Last Admin: 02/05/17 09:10 Dose: 5,000 units Insulin Human Regular (Humulin R Med) 0 units SC ACHS [facility] PRN Reason: Protocol Last Admin: 02/05/17 17:30 Dose: 5 units Lorazepam (Ativan) 1 mg PO TID PRN; Protocol PRN Reason: Anxiety Last Admin: 02/05/17 13:47 Dose: 1 mg Metoprolol Tartrate (Lopressor) 25 mg PO BRKDIN [facility] Last Admin: 02/04/17 16:45 Dose: Not Given Pantoprazole Sodium (Protonix Ec Tab) 40 mg PO 0600 [facility] Last Admin: 02/05/17 06:03 Dose: 40 mg - Labs Labs: 02/05/17 11:10 02/05/17 04:15 PT 11.9 Seconds (9.9-11.8) H 02/02/17 03:05 INR 1.10 (0.93-1.08) H 02/02/17 03:05 APTT 24.3 Seconds (23.7-30.8) 02/02/17 03:05 Assessment and Plan (1) Hyponatremia Status: Acute (2) Hypertension Status: Chronic
--- NOTE | 2017-02-05 23:26 | CP.PCM.PN ---
Subjective - Date & Time of Evaluation Date of Evaluation: 02/05/17 Time of Evaluation: 21:30 - Subjective Subjective: Infectious Disease Follow Up: February 05, 2017 56 yo female with presentation of SOB and generalized weakness. The patient states she had multiple episodes of diarrhea. The patient was found with highly altered electrolytes. The patient does not have complaints now. Initially had hypotension and tachycardia. The patient has had resolvement of most of her electrolyte abnormalities. The patient has obesity. Continued hyponatremia but improved. Chronic in nature? Case discussed with PMD. Antibiotics stopped yesterday. Objective - Vital Signs/Intake and Output Vital Signs (last 24 hours): Temp Pulse Resp BP Pulse Ox 98.4 F 96 H 20 121/18 L 97 02/05/17 16:00 02/05/17 16:00 02/05/17 16:00 02/05/17 16:00 02/05/17 16:00 Intake and Output: 02/05/17 02/06/17 18:59 06:59 Intake Total 780 Balance 780 - Medications Medications: Current Medications Heparin Sodium (Porcine) (Heparin) 5,000 units SC Q12 [facility] PRN Reason: Protocol Last Admin: 02/05/17 21:59 Dose: 5,000 units Insulin Human Regular (Humulin R Med) 0 units SC ACHS [facility] Lorazepam (Ativan) 1 mg PO TID PRN; Protocol PRN Reason: Anxiety Last Admin: 02/05/17 21:59 Dose: 1 mg Metoprolol Tartrate (Lopressor) 25 mg PO BRKDIN [facility] Last Admin: 02/04/17 16:45 Dose: Not Given Pantoprazole Sodium (Protonix Ec Tab) 40 mg PO 0600 [facility] Last Admin: 02/05/17 06:03 Dose: 40 mg - Labs Labs: 02/05/17 11:10 02/05/17 04:15 PT 11.9 Seconds (9.9-11.8) H 02/02/17 03:05 INR 1.10 (0.93-1.08) H 02/02/17 03:05 APTT 24.3 Seconds (23.7-30.8) 02/02/17 03:05 - Constitutional Appears: Non-toxic, No Acute Distress, Chronically Ill - Head Exam Head Exam: ATRAUMATIC, NORMOCEPHALIC - Eye Exam Eye Exam: EOMI, PERRL Pupil Exam: NORMAL ACCOMODATION, PERRL - ENT Exam ENT Exam: Mucous Membranes Moist, Normal External Ear Exam, TM's Normal Bilaterally - Neck Exam Neck Exam: Full ROM, Normal Inspection - Respiratory Exam Respiratory Exam: Clear to Ausculation Bilateral, NORMAL BREATHING PATTERN. absent: Rales, Rhonchi, Wheezes - Cardiovascular Exam Cardiovascular Exam: REGULAR RHYTHM, RRR, +S1, +S2 - GI/Abdominal Exam GI & Abdominal Exam: Soft, Normal Bowel Sounds. absent: Distended, Tenderness - Extremities Exam Extremities Exam: Full ROM, Normal Inspection - Neurological Exam Neurological Exam: Alert, Awake, CN II-XII Intact, Oriented x3 - Psychiatric Exam Psychiatric exam: Normal Affect, Normal Mood - Skin Skin Exam: Intact, Normal Color Assessment and Plan - Assessment and Plan (Free Text) Assessment: 56 yo female with electrolyte abnormalities, hypotension, borderline leukopenia. Was on IV Vancomycin and Zosyn. Olivo cultures. Supportive care. Hypotension has resolved. Chronic venous stasis. Cultures negative at 48 hours. Patient still with hyponatremia but improved compared to admission. Otherwise the patient is getting out of bed and has no major complaints. Case discussed with PMD. Antibiotics stopped yesterday. No new issues. Thank you for allowing me to participate in the care of the patient, we will follow with you.
--- NOTE | 2017-02-06 04:54 | CP.PCM.PN ---
Subjective - Date & Time of Evaluation Date of Evaluation: 02/06/17 Objective - Vital Signs/Intake and Output Vital Signs (last 24 hours): Temp Pulse Resp BP Pulse Ox 98.4 F 96 H 20 121/18 L 97 02/05/17 16:00 02/05/17 16:00 02/05/17 16:00 02/05/17 16:00 02/05/17 16:00 Intake and Output: 02/05/17 02/06/17 18:59 06:59 Intake Total 780 Balance 780 - Medications Medications: Current Medications Heparin Sodium (Porcine) (Heparin) 5,000 units SC Q12 [facility] PRN Reason: Protocol Last Admin: 02/05/17 21:59 Dose: 5,000 units Insulin Human Regular (Humulin R Med) 0 units SC ACHS [facility] Lorazepam (Ativan) 1 mg PO TID PRN; Protocol PRN Reason: Anxiety Last Admin: 02/05/17 21:59 Dose: 1 mg Metoprolol Tartrate (Lopressor) 25 mg PO BRKDIN [facility] Last Admin: 02/04/17 16:45 Dose: Not Given Pantoprazole Sodium (Protonix Ec Tab) 40 mg PO 0600 [facility] Last Admin: 02/05/17 06:03 Dose: 40 mg - Labs Labs: 02/05/17 11:10 02/05/17 04:15 PT 11.9 Seconds (9.9-11.8) H 02/02/17 03:05 INR 1.10 (0.93-1.08) H 02/02/17 03:05 APTT 24.3 Seconds (23.7-30.8) 02/02/17 03:05
[2017-02-06] MEDS: Pantoprazole 40 mg EC Tab PO SCH (05:41)
[2017-02-06 07:29] LABS: BASO # 0.04 K/mm3 (0.0-2.0); GRAN # 2.26 (1.4-6.5); HEMATOCRIT 36.1 % (36.0-48.0); LYMPH # 1.3 (1.2-3.4); LYMPH % 31.6 % (22.0-35.0); MEAN CELL VOLUME 90.9 fl (80.0-105.0); MEAN CORPUSCULAR HEMOGLOBIN 29.7 pg (25.0-35.0); MEAN CORPUSCULAR HGB CONC 32.7 g/dl (31.0-37.0); MEAN PLATELET VOLUME 9.8 fl (7.0-11.0); MONO # 0.5 (0.1-0.6); MONO % 12.4 % (1.0-6.0); RED CELL DISTRIBUTION WIDTH 15.6 % (11.5-14.5); WHITE BLOOD COUNT 4.2 10^3/ul (4.5-11.0)
[2017-02-06 07:40] LABS: ALB/GLOB RATIO 1.3 (1.1-1.8); ALKALINE PHOSPHATASE 106 U/L (38-126); ALT/SGPT 152 U/L (7-56); AST/SGOT 96 U/L (14-36); BILIRUBIN,TOTAL 0.5 mg/dL (0.2-1.3); BLOOD UREA NITROGEN 12 mg/dL (7-21); CALCIUM 8.7 mg/dL (8.4-10.5); CARBON DIOXIDE 31 mmol/L (21-33); CHLORIDE 98 mmol/L (95-110); GFR AFRICAN-AMERICAN > 60; GLUCOSE,RANDOM 143 mg/dL (70-110); POTASSIUM 4.1 mmol/L (3.6-5.0); SODIUM 137 mmol/L (132-148)
[2017-02-06] MEDS: Insulin Reg-MEDIUM-Coverage SC SCH ×2 (07:57→12:06)
[2017-02-06 08:18] VITALS: BP 115/68; PULSE 78; RESP 18; TEMP 98.5; O2SAT 96
--- NOTE | 2017-02-06 11:22 | CP.PCM.DIS ---
<Santo Rg - Last Filed: 02/06/17 11:22> Provider - Provider Date of Admission: 02/02/17 04:21 Attending physician: Fercho Posada MD Primary care physician: Jaimee Sesay MD Consults: Dr. Palmer- ID Dr. Mccallum- nephrology Time Spent in preparation of Discharge (in minutes): 30 Diagnosis - Discharge Diagnosis (1) Transaminitis Status: Acute Priority: Medium (2) Hyponatremia Status: Acute Priority: Medium Hospital Course - Lab Results Lab Results: Micro Results 02/02/17 08:40 Naris MRSA Culture (Admit) - Final MRSA NOT DETECTED 02/02/17 04:45 Urine,Clean Catch Urine Culture - Final No Growth (<1,000 CFU/ML) Most Recent Lab Values WBC 4.2 10^3/ul (4.5-11.0) L D 02/06/17 07:21 RBC 3.97 10^6/uL (3.5-6.1) 02/06/17 07:21 Hgb 11.8 g/dL (12.0-16.0) L 02/06/17 07:21 Hct 36.1 % (36.0-48.0) 02/06/17 07:21 MCV 90.9 fl (80.0-105.0) 02/06/17 07:21 MCH 29.7 pg (25.0-35.0) 02/06/17 07:21 MCHC 32.7 g/dl (31.0-37.0) 02/06/17 07:21 RDW 15.6 % (11.5-14.5) H 02/06/17 07:21 Plt Count 172 10^3/uL (120.0-450.0) 02/06/17 07:21 MPV 9.8 fl (7.0-11.0) 02/06/17 07:21 Gran % 54.0 % (50.0-68.0) 02/06/17 07:21 Lymph % (Auto) 31.6 % (22.0-35.0) 02/06/17 07:21 [place] % (Auto) 12.4 % (1.0-6.0) H 02/06/17 07:21 Eos % (Auto) 1.0 % (1.5-5.0) L 02/06/17 07:21 Baso % (Auto) 1.0 % (0.0-3.0) 02/06/17 07:21 Gran # 2.26 (1.4-6.5) 02/06/17 07:21 Lymph # 1.3 (1.2-3.4) 02/06/17 07:21 [place] # 0.5 (0.1-0.6) 02/06/17 07:21 Eos # 0.0 (0.0-0.7) 02/06/17 07:21 Baso # 0.04 K/mm3 (0.0-2.0) 02/06/17 07:21 PT 11.9 Seconds (9.9-11.8) H 02/02/17 03:05 INR 1.10 (0.93-1.08) H 02/02/17 03:05 APTT 24.3 Seconds (23.7-30.8) 02/02/17 03:05 D-Dimer, Quantitative 0.26 mg/L FEU (0-0.50) 02/02/17 03:05 pCO2 35 mm/Hg (35-45) 02/02/17 04:00 pO2 59 mm/Hg (30-55) H 02/02/17 07:30 HCO3 28.6 mmol/L (21-28) H 02/02/17 04:00 ABG pH 7.52 (7.35-7.45) H 02/02/17 04:00 ABG Total CO2 29.7 mmol.L (22-28) H 02/02/17 04:00 ABG O2 Saturation 96.4 % (95-98) 02/02/17 04:00 ABG Base Excess 5.7 mmol/L (-2.0-3.0) H 02/02/17 04:00 ABG Potassium 2.1 mmol/L (3.6-5.2) L* 02/02/17 04:00 VBG pH 7.48 (7.32-7.43) H 02/02/17 07:30 VBG pCO2 43.0 (40-60) 02/02/17 07:30 VBG HCO3 32.0 mmol/l (21-28) H 02/02/17 07:30 VBG Total CO2 33.3 mmol.L (22-28) H 02/02/17 07:30 VBG O2 Sat (Calc) 92.9 % (40-65) H 02/02/17 07:30 VBG Base Excess 7.6 mmol/L (0.0-2.0) H 02/02/17 07:30 VBG Potassium 2.8 mmol/L (3.6-5.2) L 02/02/17 07:30 Sodium 122.0 mmol/L (132-148) L 02/02/17 07:30 Chloride 86.0 mmol/L (98-107) L 02/02/17 07:30 Glucose 210 mg/dl (65-105) H 02/02/17 07:30 Lactate 1.4 mmol/L (0.7-2.1) 02/02/17 07:30 FiO2 21.0 % 02/02/17 07:30 Sodium 137 mmol/L (132-148) 02/06/17 07:21 Potassium 4.1 mmol/L (3.6-5.0) 02/06/17 07:21 Chloride 98 mmol/L (95-110) 02/06/17 07:21 Carbon Dioxide 31 mmol/L (21-33) 02/06/17 07:21 Anion Gap 12 (10-20) 02/06/17 07:21 BUN 12 mg/dL (7-21) 02/06/17 07:21 Creatinine 0.5 mg/dL (0.5-1.4) 02/06/17 07:21 Est GFR ( Amer) > 60 02/06/17 07:21 Est GFR (Non-Af Amer) > 60 02/06/17 07:21 POC Glucose (mg/dL) 278 mg/dL (65-110) H 02/05/17 21:14 Random Glucose 143 mg/dL (70-110) H 02/06/17 07:21 Hemoglobin A1c 6.8 % (4.2-6.5) H 02/02/17 06:30 Serum Osmolality 260 mosm/kg (271-296) L 02/02/17 07:30 Calcium 8.7 mg/dL (8.4-10.5) 02/06/17 07:21 Phosphorus 3.8 mg/dL (2.5-4.5) 02/04/17 05:00 Magnesium 1.9 mg/dL (1.7-2.2) 02/04/17 05:00 Iron 80 ug/dL (45-180) 02/02/17 11:30 TIBC 227 ug/dL (265-497) L 02/02/17 11:30 % Saturation 35 % (20-55) 02/02/17 11:30 Transferrin 172.03 mg/dL (206-381) L 02/02/17 11:30 Ferritin 815.0 ng/mL 02/02/17 11:30 Total Bilirubin 0.5 mg/dL (0.2-1.3) 02/06/17 07:21 Direct Bilirubin 0.7 mg/dL (0.0-0.4) H 02/03/17 05:00 AST 96 U/L (14-36) H 02/06/17 07:21 ALT 152 U/L (7-56) H 02/06/17 07:21 Alkaline Phosphatase 106 U/L (38-126) 02/06/17 07:21 Lactate Dehydrogenase 714 U/L (333-699) H 02/02/17 03:05 Total Creatine Kinase 238 U/L (35-230) H 02/02/17 03:05 CK-MB (CK-2) 3.2 ng/mL (0.0-3.6) 02/02/17 03:05 CK-MB (CK-2) % Cancelled 02/02/17 03:05 Troponin I < 0.01 ng/mL 02/02/17 03:05 NT-Pro-B Natriuret Pep 120 pg/mL (0-450) 02/02/17 03:05 Total Protein 6.0 g/dL (5.8-8.3) 02/06/17 07:21 Albumin 3.3 g/dL (3.0-4.8) 02/06/17 07:21 Globulin 2.6 gm/dL 02/06/17 07:21 Albumin/Globulin Ratio 1.3 (1.1-1.8) 02/06/17 07:21 Triglycerides 159 mg/dL (35-160) 02/02/17 07:30 Cholesterol 138 mg/dL (130-200) 02/02/17 07:30 LDL Cholesterol Direct 58 mg/dL (0-129) 02/02/17 07:30 HDL Cholesterol 36 mg/dL (29-60) 02/02/17 07:30 Lipase 20 U/L (23-300) L 02/02/17 03:05 TSH 3rd Generation 1.18 mIU/mL (0.46-4.68) 02/02/17 07:30 Prolactin 4.8 ng/mL (3.0-18.9) 02/02/17 07:30 DHEA Sulfate 51 mcg/dL (8-188) 02/02/17 06:36 Cortisol AM Sample 12.2 ug/dL (4.46-22.7) 02/02/17 07:30 ACTH <5 pg/mL (6-50) L 02/02/17 08:30 Arterial Blood Potassium 2.1 mmol/L (3.6-5.2) L* 02/02/17 04:00 Venous Blood Potassium 2.8 mmol/L (3.6-5.2) L 02/02/17 07:30 Urine Color Yellow (YELLOW) 02/02/17 04:45 Urine Appearance Clear (CLEAR) 02/02/17 04:45 Urine pH 6.5 (4.7-8.0) 02/02/17 04:[address] Ur [address] [place] <= 1.005 (1.005-1.035) 02/02/17 04:45 Urine Protein Negative mg/dL (<30 mg/dL) 02/02/17 04:45 Urine Glucose (UA) Negative mg/dL (NEGATIVE) 02/02/17 04:45 Urine Ketones Trace mg/dL (NEGATIVE) H 02/02/17 04:45 Urine Blood Trace-intact (NEGATIVE) H 02/02/17 04:45 Urine Nitrate Negative (NEGATIVE) 02/02/17 04:45 Urine Bilirubin Negative (NEGATIVE) 02/02/17 04:45 Urine Urobilinogen 0.2 E.U./dL (<1 E.U./dL) 02/02/17 04:45 Ur Leukocyte Esterase Small Alonso/uL (NEGATIVE) H 02/02/17 04:45 Urine RBC 0 - 2 /hpf (0-2) 02/02/17 04:45 Urine WBC 2 - 5 /hpf (0-6) 02/02/17 04:45 Ur Epithelial Cells 3 - 4 /hpf (0-5) 02/02/17 04:45 Urine Bacteria Occ (NEG) 02/02/17 04:45 Urine Osmolality 699 mosm/kg (50-645) H 02/04/17 10:00 Ur Random Sodium 144 meq/L 02/04/17 10:00 Urine Chloride 70 mmol/L (32-290) 02/02/17 06:24 Urine Magnesium 1.4 mg/dL 02/02/17 06:24 Salicylates < 1 mg/dL (2.0-20.0) L 02/02/17 11:30 Urine Opiates Screen Negative (NEGATIVE) 02/04/17 09:55 Urine Methadone Screen Negative (NEGATIVE) 02/04/17 09:55 Acetaminophen < 10.0 ug/ml (10.0-20.0) L 02/02/17 08:30 Ur Barbiturates Screen Negative (NEGATIVE) 02/04/17 09:55 Ur Phencyclidine Scrn Negative (NEGATIVE) 02/04/17 09:55 Ur Amphetamines Screen Negative (NEGATIVE) 02/04/17 09:55 U Benzodiazepines Scrn Negative (NEGATIVE) 02/04/17 09:55 U Oth Cocaine Metabols Negative (NEGATIVE) 02/04/17 09:55 U Cannabinoids Screen Negative (NEGATIVE) 02/04/17 09:55 Alcohol, Quantitative < 10 mg/dL (0-10) 02/02/17 08:30 IgG 860.7 mg/dL (700.0-1600.0) 02/02/17 11:30 IgA 280.4 mg/dL (70.0-400.0) 02/02/17 11:30 IgM 93.9 mg/dL (40.0-230.0) 02/02/17 11:30 SHARI Screen Negative (Negative) 02/02/17 11:30 Anti-Mitochondrial Ab Negative (Negative) 02/02/17 11:30 Smooth Muscle Ab Titer TEST NOT PERFORMED 02/02/17 11:30 Anti-Smooth Muscle Ab Negative (Negative) 02/02/17 11:30 Thyroperoxidase Ab 13 IU/mL (<9) H 02/02/17 07:30 Thyroglobulin Antibody <1 IU/mL (< OR = 1) 02/02/17 07:30 Hepatitis A IgM Ab Negative (NEGATIVE) 02/02/17 07:30 Hep Bs Antigen Negative (NEGATIVE) 02/02/17 07:30 Hep B Core IgM Ab Negative (NEGATIVE) 02/02/17 07:30 Hepatitis C Antibody Negative (NEGATIVE) 02/02/17 07:30 - Hospital Course Hospital Course: 56 year old [place] female with a past medical history of hypertension and diabetes who was admitted for evaluation and treatment for diarrhea, uncontrolled blood sugars at home, and excess water intake. With the use of physical examinations, lab work, and imaging the patient was diagnosed with and treated for chronic, severe hyponatremia and other electrolyte disturbances warranting admission to the ICU for closer monitoring and treatment. During their hospital stay the patient was seen by nephrology Dr. Mccallum and infectious disease Dr. Palmer. Using various intravenous fluids the patient sodium is corrected. During their hospital stay the patient underwent a CT of the abdomen which showed no acute findings and an abdominal ultrasound which showed mild hepatomegaly and diffuse increased echogenicity in the liver may reflect hepatic steatosis. At this time the patient is medically stable for discharge. Patient understands and appreciates discharge plan. Patient instructed to follow up with primary care physicians and referrals within one week from discharge. Furthermore the patient is instructed to take medications as prescribed and to return to emergency room for evaluation of intractable headache, fever, chills, dizziness, chest pain, shortness of breath, abdominal pain, nausea, vomiting, diarrhea, constipation, and urinary symptoms. This is a brief summary of the patient hospital course. Please see patient chart for full details. Discharge Exam - Head Exam Head Exam: ATRAUMATIC, NORMOCEPHALIC - Additional Findings Additional findings: Constitutional Appears: Well, No Acute Distress - Head Exam Head Exam: ATRAUMATIC, NORMAL INSPECTION - Eye Exam Eye Exam: EOMI, Normal appearance - ENT Exam ENT Exam: Mucous Membranes Moist, Normal Oropharynx - Neck Exam Neck Exam: Normal Inspection - Respiratory Exam Respiratory Exam: Clear to Ausculation Bilateral. absent: Rales - Cardiovascular Exam Cardiovascular Exam: RRR, +S1, +S2 - GI/Abdominal Exam GI & Abdominal Exam: Normal Bowel Sounds. absent: Tenderness - Extremities Exam Extremities Exam: Normal Capillary Refill, Normal Inspection. absent: Calf Tenderness - Back Exam Back Exam: NORMAL INSPECTION. absent: CVA tenderness (L), CVA tenderness (R) - Neurological Exam Neurological Exam: Alert, CN II-XII Intact, Oriented x3 - Psychiatric Exam Psychiatric exam: Normal Affect, Normal Mood - Skin Skin Exam: Dry, Intact, Normal Color, Warm Discharge Plan - Follow Up Plan Condition: CRITICAL Disposition: HOME/ ROUTINE Patient education suggested?: Yes Instructions: Pneumococcal Vaccine for Adults (GEN), Hyponatremia (DC), How to Check Your Blood Sugar (GEN), Basic Carbohydrate Counting (DC), Hypertension ( GEN) Additional Instructions: Patient Instructions: Take medications as prescribed. Follow up with primary care physician and referrals within 1 week from discharge. Return to emergency room for evaluation of intractable headache, fever, chills, dizziness, chest pain, shortness of breath, abdominal pain, nausea, vomiting, diarrhea, constipation, and urinary symptoms. Referrals: Jaimee Gaspar MD [Primary Care Provider] - Nakul Mccallum MD [Staff Provider] - Narayan Palmer MD [Staff Provider] - <Fercho Posada - Last Filed: 02/09/17 18:20> Provider - Provider Date of Admission: 02/02/17 04:21 Attending physician: Fercho Posada MD Primary care physician: Jaimee Sesay MD Time Spent in preparation of Discharge (in minutes): 35 Hospital Course - Lab Results Lab Results: Micro Results 02/02/17 08:40 Naris MRSA Culture (Admit) - Final MRSA NOT DETECTED 02/02/17 04:45 Urine,Clean Catch Urine Culture - Final No Growth (<1,000 CFU/ML) Most Recent Lab Values WBC 4.2 10^3/ul (4.5-11.0) L D 02/06/17 07:21 RBC 3.97 10^6/uL (3.5-6.1) 02/06/17 07:21 Hgb 11.8 g/dL (12.0-16.0) L 02/06/17 07:21 Hct 36.1 % (36.0-48.0) 02/06/17 07:21 MCV 90.9 fl (80.0-105.0) 02/06/17 07:21 MCH 29.7 pg (25.0-35.0) 02/06/17 07:21 MCHC 32.7 g/dl (31.0-37.0) 02/06/17 07:21 RDW 15.6 % (11.5-14.5) H 02/06/17 07:21 Plt Count 172 10^3/uL (120.0-450.0) 02/06/17 07:21 MPV 9.8 fl (7.0-11.0) 02/06/17 07:21 Gran % 54.0 % (50.0-68.0) 02/06/17 07:21 Lymph % (Auto) 31.6 % (22.0-35.0) 02/06/17 07:21 [place] % (Auto) 12.4 % (1.0-6.0) H 02/06/17 07:21 Eos % (Auto) 1.0 % (1.5-5.0) L 02/06/17 07:21 Baso % (Auto) 1.0 % (0.0-3.0) 02/06/17 07:21 Gran # 2.26 (1.4-6.5) 02/06/17 07:21 Lymph # 1.3 (1.2-3.4) 02/06/17 07:21 [place] # 0.5 (0.1-0.6) 02/06/17 07:21 Eos # 0.0 (0.0-0.7) 02/06/17 07:21 Baso # 0.04 K/mm3 (0.0-2.0) 02/06/17 07:21 PT 11.9 Seconds (9.9-11.8) H 02/02/17 03:05 INR 1.10 (0.93-1.08) H 02/02/17 03:05 APTT 24.3 Seconds (23.7-30.8) 02/02/17 03:05 D-Dimer, Quantitative 0.26 mg/L FEU (0-0.50) 02/02/17 03:05 pCO2 35 mm/Hg (35-45) 02/02/17 04:00 pO2 59 mm/Hg (30-55) H 02/02/17 07:30 HCO3 28.6 mmol/L (21-28) H 02/02/17 04:00 ABG pH 7.52 (7.35-7.45) H 02/02/17 04:00 ABG Total CO2 29.7 mmol.L (22-28) H 02/02/17 04:00 ABG O2 Saturation 96.4 % (95-98) 02/02/17 04:00 ABG Base Excess 5.7 mmol/L (-2.0-3.0) H 02/02/17 04:00 ABG Potassium 2.1 mmol/L (3.6-5.2) L* 02/02/17 04:00 VBG pH 7.48 (7.32-7.43) H 02/02/17 07:30 VBG pCO2 43.0 (40-60) 02/02/17 07:30 VBG HCO3 32.0 mmol/l (21-28) H 02/02/17 07:30 VBG Total CO2 33.3 mmol.L (22-28) H 02/02/17 07:30 VBG O2 Sat (Calc) 92.9 % (40-65) H 02/02/17 07:30 VBG Base Excess 7.6 mmol/L (0.0-2.0) H 02/02/17 07:30 VBG Potassium 2.8 mmol/L (3.6-5.2) L 02/02/17 07:30 Sodium 122.0 mmol/L (132-148) L 02/02/17 07:30 Chloride 86.0 mmol/L (98-107) L 02/02/17 07:30 Glucose 210 mg/dl (65-105) H 02/02/17 07:30 Lactate 1.4 mmol/L (0.7-2.1) 02/02/17 07:30 FiO2 21.0 % 02/02/17 07:30 Sodium 137 mmol/L (132-148) 02/06/17 07:21 Potassium 4.1 mmol/L (3.6-5.0) 02/06/17 07:21 Chloride 98 mmol/L (95-110) 02/06/17 07:21 Carbon Dioxide 31 mmol/L (21-33) 02/06/17 07:21 Anion Gap 12 (10-20) 02/06/17 07:21 BUN 12 mg/dL (7-21) 02/06/17 07:21 Creatinine 0.5 mg/dL (0.5-1.4) 02/06/17 07:21 Est GFR ( Amer) > 60 02/06/17 07:21 Est GFR (Non-Af Amer) > 60 02/06/17 07:21 POC Glucose (mg/dL) 278 mg/dL (65-110) H 02/05/17 21:14 Random Glucose 143 mg/dL (70-110) H 02/06/17 07:21 Hemoglobin A1c 6.8 % (4.2-6.5) H 02/02/17 06:30 Serum Osmolality 260 mosm/kg (271-296) L 02/02/17 07:30 Calcium 8.7 mg/dL (8.4-10.5) 02/06/17 07:21 Phosphorus 3.8 mg/dL (2.5-4.5) 02/04/17 05:00 Magnesium 1.9 mg/dL (1.7-2.2) 02/04/17 05:00 Iron 80 ug/dL (45-180) 02/02/17 11:30 TIBC 227 ug/dL (265-497) L 02/02/17 11:30 % Saturation 35 % (20-55) 02/02/17 11:30 Transferrin 172.03 mg/dL (206-381) L 02/02/17 11:30 Ferritin 815.0 ng/mL 02/02/17 11:30 Total Bilirubin 0.5 mg/dL (0.2-1.3) 02/06/17 07:21 Direct Bilirubin 0.7 mg/dL (0.0-0.4) H 02/03/17 05:00 AST 96 U/L (14-36) H 02/06/17 07:21 ALT 152 U/L (7-56) H 02/06/17 07:21 Alkaline Phosphatase 106 U/L (38-126) 02/06/17 07:21 Lactate Dehydrogenase 714 U/L (333-699) H 02/02/17 03:05 Total Creatine Kinase 238 U/L (35-230) H 02/02/17 03:05 CK-MB (CK-2) 3.2 ng/mL (0.0-3.6) 02/02/17 03:05 CK-MB (CK-2) % Cancelled 02/02/17 03:05 Troponin I < 0.01 ng/mL 02/02/17 03:05 NT-Pro-B Natriuret Pep 120 pg/mL (0-450) 02/02/17 03:05 Total Protein 6.0 g/dL (5.8-8.3) 02/06/17 07:21 Albumin 3.3 g/dL (3.0-4.8) 02/06/17 07:21 Globulin 2.6 gm/dL 02/06/17 07:21 Albumin/Globulin Ratio 1.3 (1.1-1.8) 02/06/17 07:21 Triglycerides 159 mg/dL (35-160) 02/02/17 07:30 Cholesterol 138 mg/dL (130-200) 02/02/17 07:30 LDL Cholesterol Direct 58 mg/dL (0-129) 02/02/17 07:30 HDL Cholesterol 36 mg/dL (29-60) 02/02/17 07:30 Lipase 20 U/L (23-300) L 02/02/17 03:05 TSH 3rd Generation 1.18 mIU/mL (0.46-4.68) 02/02/17 07:30 Prolactin 4.8 ng/mL (3.0-18.9) 02/02/17 07:30 DHEA Sulfate 51 mcg/dL (8-188) 02/02/17 06:36 Cortisol AM Sample 12.2 ug/dL (4.46-22.7) 02/02/17 07:30 ACTH <5 pg/mL (6-50) L 02/02/17 08:30 Arterial Blood Potassium 2.1 mmol/L (3.6-5.2) L* 02/02/17 04:00 Venous Blood Potassium 2.8 mmol/L (3.6-5.2) L 02/02/17 07:30 Urine Color Yellow (YELLOW) 02/02/17 04:45 Urine Appearance Clear (CLEAR) 02/02/17 04:45 Urine pH 6.5 (4.7-8.0) 02/02/17 04:45 Ur Specific [place] <= 1.005 (1.005-1.035) 02/02/17 04:45 Urine Protein Negative mg/dL (<30 mg/dL) 02/02/17 04:45 Urine Glucose (UA) Negative mg/dL (NEGATIVE) 02/02/17 04:45 Urine Ketones Trace mg/dL (NEGATIVE) H 02/02/17 04:45 Urine Blood Trace-intact (NEGATIVE) H 02/02/17 04:45 Urine Nitrate Negative (NEGATIVE) 02/02/17 04:45 Urine Bilirubin Negative (NEGATIVE) 02/02/17 04:45 Urine Urobilinogen 0.2 E.U./dL (<1 E.U./dL) 02/02/17 04:45 Ur Leukocyte Esterase Small Alonso/uL (NEGATIVE) H 02/02/17 04:45 Urine RBC 0 - 2 /hpf (0-2) 02/02/17 04:45 Urine WBC 2 - 5 /hpf (0-6) 02/02/17 04:45 Ur Epithelial Cells 3 - 4 /hpf (0-5) 02/02/17 04:45 Urine Bacteria Occ (NEG) 02/02/17 04:45 Urine Osmolality 699 mosm/kg (50-645) H 02/04/17 10:00 Ur Random Sodium 144 meq/L 02/04/17 10:00 Urine Chloride 70 mmol/L (32-290) 02/02/17 06:24 Urine Magnesium 1.4 mg/dL 02/02/17 06:24 Salicylates < 1 mg/dL (2.0-20.0) L 02/02/17 11:30 Urine Opiates Screen Negative (NEGATIVE) 02/04/17 09:55 Urine Methadone Screen Negative (NEGATIVE) 02/04/17 09:55 Acetaminophen < 10.0 ug/ml (10.0-20.0) L 02/02/17 08:30 Ur Barbiturates Screen Negative (NEGATIVE) 02/04/17 09:55 Ur Phencyclidine Scrn Negative (NEGATIVE) 02/04/17 09:55 Ur Amphetamines Screen Negative (NEGATIVE) 02/04/17 09:55 U Benzodiazepines Scrn Negative (NEGATIVE) 02/04/17 09:55 U Oth Cocaine Metabols Negative (NEGATIVE) 02/04/17 09:55 U Cannabinoids Screen Negative (NEGATIVE) 02/04/17 09:55 Alcohol, Quantitative < 10 mg/dL (0-10) 02/02/17 08:30 IgG 860.7 mg/dL (700.0-1600.0) 02/02/17 11:30 IgA 280.4 mg/dL (70.0-400.0) 02/02/17 11:30 IgM 93.9 mg/dL (40.0-230.0) 02/02/17 11:30 SHARI Screen Negative (Negative) 02/02/17 11:30 Anti-Mitochondrial Ab Negative (Negative) 02/02/17 11:30 Smooth Muscle Ab Titer TEST NOT PERFORMED 02/02/17 11:30 Anti-Smooth Muscle Ab Negative (Negative) 02/02/17 11:30 Thyroperoxidase Ab 13 IU/mL (<9) H 02/02/17 07:30 Thyroglobulin Antibody <1 IU/mL (< OR = 1) 02/02/17 07:30 Hepatitis A IgM Ab Negative (NEGATIVE) 02/02/17 07:30 Hep Bs Antigen Negative (NEGATIVE) 02/02/17 07:30 Hep B Core IgM Ab Negative (NEGATIVE) 02/02/17 07:30 Hepatitis C Antibody Negative (NEGATIVE) 02/02/17 07:30 Attending/Attestation - Attestation I have personally seen and examined this patient.: Yes I have fully participated in the care of the patient.: Yes I have reviewed all pertinent clinical information, including history, physical exam and plan: Yes Notes (Text): I have seen and examined the patient at bedside. Agree with the above note with the following additions/ exceptions: Briefly this is 56 year old [place] female with history of HTN and DM-2 who presented with diarrhea and found to have severe electrolyte abnormalities including hyponatremia most likely due to volume depletion. Sodium has improved. She also has elevated LFT's probably due to an episode of hypotension. Hep panel is negative. Autoimmune work up ordered by GI and is pending. Advised patient to follow up with PMD in 1 week for follow up of BP. Continue to hold lopressor. Restart metformin. Upon discharge patient will follow up with Dr Salas. Dr Fercho Posada
--- NOTE | 2017-02-06 17:54 | CP.PCM.PN ---
Subjective - Date & Time of Evaluation Date of Evaluation: 02/06/17 Time of Evaluation: 14:00 - Subjective Subjective: Infectious Disease Follow Up: February 06, 2017 56 yo female with presentation of SOB and generalized weakness. The patient states she had multiple episodes of diarrhea. The patient was found with highly altered electrolytes. The patient does not have complaints now. Initially had hypotension and tachycardia. The patient has had resolvement of most of her electrolyte abnormalities. The patient has obesity. Continued hyponatremia but improved. Chronic in nature? Case discussed with PMD. Antibiotics stopped. No new issues. Objective - Vital Signs/Intake and Output Vital Signs (last 24 hours): Temp Pulse Resp BP Pulse Ox 98.5 F 78 18 115/68 96 02/06/17 08:17 02/06/17 08:17 02/06/17 08:17 02/06/17 08:17 02/06/17 08:17 Intake and Output: 02/06/17 02/06/17 06:59 18:59 Intake Total 1020 560 Balance 1020 560 - Labs Labs: 02/06/17 07:21 02/06/17 07:21 PT 11.9 Seconds (9.9-11.8) H 02/02/17 03:05 INR 1.10 (0.93-1.08) H 02/02/17 03:05 APTT 24.3 Seconds (23.7-30.8) 02/02/17 03:05 - Constitutional Appears: Non-toxic, No Acute Distress, Chronically Ill - Head Exam Head Exam: ATRAUMATIC, NORMOCEPHALIC - Eye Exam Eye Exam: EOMI, PERRL Pupil Exam: NORMAL ACCOMODATION, PERRL - ENT Exam ENT Exam: Mucous Membranes Moist, Normal External Ear Exam, TM's Normal Bilaterally - Neck Exam Neck Exam: Full ROM, Normal Inspection - Respiratory Exam Respiratory Exam: Clear to Ausculation Bilateral, NORMAL BREATHING PATTERN. absent: Rales, Rhonchi, Wheezes - Cardiovascular Exam Cardiovascular Exam: REGULAR RHYTHM, RRR, +S1, +S2 - GI/Abdominal Exam GI & Abdominal Exam: Soft, Normal Bowel Sounds. absent: Distended, Tenderness - Extremities Exam Extremities Exam: Full ROM, Normal Inspection - Neurological Exam Neurological Exam: Alert, Awake, CN II-XII Intact, Oriented x3 - Psychiatric Exam Psychiatric exam: Normal Affect, Normal Mood - Skin Skin Exam: Intact, Normal Color Assessment and Plan - Assessment and Plan (Free Text) Assessment: 56 yo female with electrolyte abnormalities, hypotension, borderline leukopenia. Was on IV Vancomycin and Zosyn. Olivo cultures. Supportive care. Hypotension has resolved. Chronic venous stasis. Cultures negative at 48 hours. Patient still with hyponatremia but improved compared to admission. Otherwise the patient is getting out of bed and has no major complaints. Case discussed with PMD. Antibiotics stopped. No new issues. Currently on Infectious Disease issues. Thank you for allowing me to participate in the care of the patient, we will follow with you.
[2017-02-07 12:56] LABS: LKM-1 Ab (IgG) <=20.0 U (<=20.0)
== END 2017-02-06 17:09 | disposition home or self-care (01) | DRG 641 ==
LOC: ED 02:35 → ERH 04:21 → CCU 07:39 → 5RSO 02-05 15:12
PROVIDERS: ADMIT Internal Medicine; ATTEND Hospitalist
DX: E87.1 Hypo-osmolality and hyponatremia (principal); E86.0 Dehydration; E87.2 Acidosis; R65.10 Systemic inflammatory response syndrome (SIRS) of non-infectious origin without acute organ dysfunction; E11.65 Type 2 diabetes mellitus with hyperglycemia; E66.01 Morbid (severe) obesity due to excess calories; E87.6 Hypokalemia; E83.42 Hypomagnesemia; I10 Essential (primary) hypertension; I87.2 Venous insufficiency (chronic) (peripheral); R19.7 Diarrhea, unspecified; G47.00 Insomnia, unspecified; F41.9 Anxiety disorder, unspecified; R74.0 Nonspecific elevation of levels of transaminase and lactic acid dehydrogenase [LDH]; Z68.33 Body mass index [BMI] 33.0-33.9, adult